=== PATIENT | female | born 1970 | race African-American/Black ===

== ENCOUNTER → 2016-11-04 | Outpatient (CLI) | payer OTHER ==
[~2016-11-04] MED LIST: AMOXICILLIN500 M2 PO; ANAPROX DS550 MG PO; ATARAX25 MG PO; BACTRIM DS 8001 TA1 PO; BACTROBAN CREAM15 GM T; CIPRO500 MG PO; CIPROFLOXACIN500 MG PO; FLEXERIL10 MG PO; FLEXERIL5 MG PO; KEFLEX500 MG PO; KENALOG 0.5% CR15 GM PO; KENALOG0.1% TP; MEDROL DOSEPAK4 MG PO; MIRALAX POWDER17 G1 PO; MOTRIN800 MG PO; Motrin,Rufen800 MG PO; NAPROSYN250 MG PO; NAPROSYN375 MG PO; NAPROSYN500 MG PO; NICODERM C7 MG/24 HR TD; NKHM; PHENERGAN W/DM120 ML PO; PREDNISONE10 MG PO; PREDNISONE20 M1 PO; PROAIR HFA0.09 MG/AC IH; ROBITUSSIN AC 110 ML PO; TRAMADOL HCL50 MG PO; TRIMOX500 MG PO; VENTOLIN H0.09 MG/AC INH; VIBRAMYCIN100 MG PO; VICODIN 5/500 505 MG PO; ZOFRAN ODT4 MG SL
[2016-11-04 14:25] LABS: HEMATOCRIT 37.7 % (37.0-47.0); HEMOGLOBIN 12.3 g/dl (12.0-16.0); MEAN CELL VOLUME 86.9 fl (81.0-99.0); MEAN CORPUSCULAR HGB 28.3 pg (27.0-31.0); MEAN CORPUSCULAR HGB CONC 32.6 g/dl (33.0-37.0); MEAN PLATELET VOLUME 10.5 fl (9.6-12.3); PLATELET COUNT AUTOMATED 251 10*3/uL (130-400); RED BLOOD COUNT 4.34 10*6/uL (4.10-5.10); RED CELL DISTRI WIDTH 15.6 % (0-14.5); WHITE BLOOD COUNT 5.2 10*3/uL (4.8-10.8)
[2016-11-04 14:50] LABS: EOSINOPHIL # 0.5 10*3/uL (0-0.4); EOSINOPHILS 9 % (1-4); MONOCYTE # 0.2 10*3/uL (0.1-1.0); NEUTROPHIL # 1.6 10*3/uL (2.3-7.9); NEUTROPHILS 30 % (47-73); TOTAL CELLS COUNTED 100 #CELLS
[2016-11-04 14:51] LABS: PLATELET SUFFICIENCY NORMAL (NORMAL)
[2016-11-04 14:56] LABS: ALBUMIN 3.8 gm/dl (3.1-4.5); BILIRUBIN, TOTAL 0.3 mg/dl (0.2-1.0); BUN 12 mg/dl (7-24); CARBON DIOXIDE 25 mmol/L (21-32); CHLORIDE 109 mmol/L (98-107); CHOLESTEROL 139 mg/dL (<200); EST GLOM FILT AFRICAN AMERICAN > 60 ml/min; GLUCOSE 83 mg/dL (65-99); POTASSIUM 4.1 mmol/L (3.5-5.1); SGOT/AST 18 IU/L (3-35); SGPT/ALT 21 U/L (12-78); SODIUM 141 mmol/L (136-145); TOTAL PROTEIN 7.4 gm/dL (6.4-8.2); TRIGLYCERIDES 42 mg/dl (<150); VLDL CHOLESTEROL 8 mg/dL (6-40)
[2016-11-04 14:57] LABS: ALKALINE PHOSPHATASE 64 U/L (45-117); HDL CHOLESTEROL 80 mg/dl (40-60); LDL CHOLESTEROL 51 mg/dL (9-159)
== END ==
LOC: LAB 14:07
PROVIDERS: Nurse Practitioner Family
DX: J44.9 Chronic obstructive pulmonary disease, unspecified (principal); K59.00 Constipation, unspecified

== ENCOUNTER 2016-11-18 20:02 | Emergency (ER) | payer OTHER ==
[~2016-11-18] VITALS: Ht 157.4 cm; Wt 49.9 kg
[2016-11-18 20:16] VITALS: BP 133/71
[2016-11-18] MEDS ORDERED: MEDROL DOSEPAK4 MG PO (20:52)
== END 2016-11-18 21:10 | disposition home or self-care (01) ==
LOC: ED 20:02
DX: M77.9 Enthesopathy, unspecified (principal); F17.200 Nicotine dependence, unspecified, uncomplicated

== ENCOUNTER 2016-12-21 20:47 | Inpatient (IN) | payer OTHER ==
[~2016-12-21] VITALS: Ht 154.9 cm; Wt 49.0 kg
--- NOTE | ~2016-12-21 | CON ---
[place], [place] REPORT OF CONSULTATION NAME: CAROLYN MONIQUE [facility] #: [id number] UNIT #: [id number] ROOM: 424 DOCTOR: SHEMAR SUÁREZ MDJOVANI BIRTHDATE: [birth year] DOS: 12/23/2016 PULMONARY CONSULTATION EVALUATION REASON FOR CONSULTATION: Consultation was done for patient's assessment of ongoing acute respiratory symptoms with exacerbation of bronchial asthma. REQUESTING PHYSICIAN: The consultation requested by Dr. Thalia Rae. HISTORY OF PRESENT ILLNESS: A 46-year-old white female who has been admitted to the hospital. The patient has been noted with getting increased shortness of breath for the past few days. Shortness of breath has been noted progressive worsening. She has been using an excessive amount of albuterol sulfate nebulizer. She has used the medication 8-9 times in 24 hours prior to coming to the Emergency Room. She was still noted difficulty breathing. The patient stated that she was felling lightheadedness after that and also about to pass out in the morning. The patient denies any symptoms of chest pain. The patient denies any symptoms of hemoptysis. The cough has been noted with intermittent sputum expectoration. She was also noted symptoms of wheezing and tightness in the chest. REVIEW OF SYSTEMS: CONSTITUTIONAL: Does complain of symptoms of fatigue and tiredness. Denies symptoms of fever or chills. EYES: Denies burning, redness, or tenderness. EARS, NOSE, THROAT SYMPTOMS: No sore throat, hoarseness, otalgia, postnasal drainage. CARDIOVASCULAR: Denies anginal pain, edema of the lower extremities, palpitations. GASTROINTESTINAL: Dysphagia, nausea, vomiting, diarrhea, abdominal pain, hematemesis, melena. GENITOURINARY: Denies dysuria, suprapubic pain, hematuria. SKIN: No lesions or rashes. MUSCULOSKELETAL: Denies acute joint pain, redness, or tenderness. CENTRAL NERVOUS SYSTEM: Symptoms of dizziness, near syncope of the patient seemed to be resolved at this time, which occurred at home previously as the patient uses Albuterol sulfate. Remaining systems were reviewed with the patient, they were noted all negative. PAST MEDICAL HISTORY: Reported for this patient as: 1. Bronchial asthma. 2. History of nicotine dependence. SOCIAL HISTORY: The patient stated she is not , has 5 children. Smoking was noted for the patient between half to a pack of cigarettes per day since teenager. Continue to smoke cigarettes actively. Denies any history of alcohol use or any illicit drugs use. PAST SURGICAL HISTORY: Noted as past . [place], [place] REPORT OF CONSULTATION NAME: CAROLYN MONIQUE UNIT #: [id number] ROOM: 424 DOCTOR: SHEMAR SUÁREZ MD,JOVANI BIRTHDATE: [birth year] FAMILY HISTORY: Father at the age of 7575 years old, complication of metastatic prostate cancer. The mother at age of 5656 years old, complications related to bronchial asthma. HOME MEDICATIONS: Noted ProAir, Ventolin HFA inhaler and the albuterol sulfate nebulizer. DRUG ALLERGIES: No known drug allergies. PHYSICAL EXAMINATION: GENERAL: This is a 46-year-old -Monegasque female, currently lying on the bed without any distress. Height of 5 feet 1 inch, weight of 108 pounds, BMI 20.4. VITAL SIGNS: Shows normal temperature, respiratory rate of 30 on admission, currently noted 18, heart rate 78-86, blood pressure of 107/82-106/65. Intake for the patient noted as 1040, output was not recorded. HEENT: Examination shows head is atraumatic. Eyes nonicterus. NECK: Supple. Head is atraumatic. Oral mucosa is moist. CARDIOVASCULAR: S1, S2 is audible. LUNGS: The patient is noted with moderate reduced breath sounds with diffuse expiratory wheezing. There are no crackles. ABDOMEN: Soft, nontender. Bowel sounds present. EXTREMITIES: Do not show any edema, clubbing, cyanosis. NEUROLOGIC: Cranial nerves 2 through 12 intact. No focal deficits. MUSCULOSKELETAL: No deformities. SKIN: Showed no lesions or rashes. LABORATORY DATA: CBC that was done just on 12/21/2016 was noted as normal CBC. Lactic acid normal on 12/21/2016. PT, PTT, 12/21/2016 was normal. The CMP on 12/21/2016 normal CMP and the troponin. The second set of troponin of the patient on 12/22/2016 normal. CBC on 12/22/2016, WBC count 4.7 with a normal CBC. BMP repeated on 12/22/2016 shows essentially normal BMP. CBC of this morning: WBC count 11,000. Remaining CBC normal. BMP: Glucose of 139, remaining BMP was normal. The chest x-ray of the patient that was done 1-view was reviewed for this patient. The 1-view chest x-ray of the patient was noted with finding of hyperinflation the patient without any acute pulmonary infiltration or other acute abnormalities visible at this time. IMPRESSION: 1. The patient who has been currently admitted to the hospital. The patient has been noted with ongoing acute exacerbation of bronchial asthma, unknown severity, most likely bronchial asthma could be considered at least moderate intensity for this patient as well based on her history. 2. History of chronic nicotine dependence. 3. Acute bacterial bronchitis, community-acquired infection streptococcal pneumonia would be considered. PLAN OF TREATMENT: The patient has been receiving the current bronchodilator, which will be continued every 4 hours. Solu-Medrol will be continued 60 mg q.8 hours with further reduction of the dose done based on the progression of the [place], [place] REPORT OF CONSULTATION NAME: CAROLYN MONIQUE UNIT #: [id number] ROOM: 424 DOCTOR: JOVANI PURCELL MD BIRTHDATE: [birth year] illness. The dose could be decreased for the patient from tomorrow. Today, it will be continued on same doses. The patient is still noted significant wheezing. Abstinence from the tobacco was discussed with the patient. Nicotine replacement patches could be used to help overcome any nicotine withdrawal if agreed upon by the patient. She was also requiring long-term management of bronchial asthma with addition of medications administration, which will be started for this patient as well. Continue use of the Mucinex as well. Obtain the sputum for Gram stain and culture if the patient is able to expectorate any sputum. Obtain PA lateral view of the patient to definitively exclude any pathology for assessment of the patient with the lateral view. Thanks for allowing me to participate in the care of this patient. JOVANI STATON MD CM:CONSTR:REPORT OF CONSULTATION 1200 12/24/16 0205 interface
--- NOTE | ~2016-12-21 | PR ---
[place], [place] PROGRESS NOTE [id number] #: [id number] ROOM: 424 DOCTOR: SHEMAR SUÁREZ MD,JOVANI BIRTHDATE: [birth year] DOS: 12/24/2016 PULMONARY PROGRESS NOTE SUBJECTIVE: She has been noted comfortable at this time, resting on the bed . Denies symptoms of acute chest pain. All the symptoms of the patient, which has been noted previously seemed to be gradually improving. OBJECTIVE: VITAL SIGNS: Shows normal temperature, respiratory rate 16, heart rate 86, blood pressure 113/72. Pulse oxygen saturation on room air 99% saturation. HEENT: No acute change. NECK: Supple. CARDIOVASCULAR SYSTEM: S1, S2 audible. LUNGS: The patient was noted with occasional wheezing. No crackles. ABDOMEN: Soft, nontender. LABORATORY DATA: Chest x-ray, PA and lateral view this morning does not show any acute pulmonary infiltration. Changes of COPD were noted. The BMP: Sodium 139, otherwise normal. CBC: WBC count was 11,000, hemoglobin and hematocrit normal, platelet count was normal. IMPRESSION: 1. The patient was currently responding to current treatment for the medical management of acute exacerbation of bronchial asthma and acute bronchitis. 2. Nicotine dependence. PLAN OF TREATMENT: The patient could be considered for possible home discharge today for the patient on oral medications. Tobacco abstinence for the patient was recommended. JOVANI STATON MD CM:PNTRANS [id number] JOVANI SUÁREZ MD 12/24/16 0713 interface
[2016-12-21 20:57] VITALS: BP 107/69
[2016-12-21 21:11] LABS: BASO # 0.1 10*3/uL (0.0-0.1); BASO % 0.6 % (0.0-1.0); EOS # 1.1 10*3/uL (0.0-0.4); EOS % 12.1 % (1.0-4.0); HEMATOCRIT 40.8 % (37.0-47.0); HEMOGLOBIN 13.5 g/dl (12.0-16.0); LYMPH # 3.3 10*3/uL (1.3-4.4); LYMPH % 36.5 % (27.0-41.0); MEAN CELL VOLUME 87.2 fl (81.0-99.0); MEAN CORPUSCULAR HGB 28.8 pg (27.0-31.0); MEAN CORPUSCULAR HGB CONC 33.1 g/dl (33.0-37.0); MONO # 0.5 10*3/uL (0.1-1.0); NEUT # 4.1 10*3/uL (2.3-7.9); NEUT % 44.6 % (47.0-73.0); PLATELET COUNT AUTOMATED 277 10*3/uL (130-400); RED BLOOD COUNT 4.68 10*6/uL (4.10-5.10); RED CELL DISTRI WIDTH 14.3 % (0-14.5); WHITE BLOOD COUNT 9.1 10*3/uL (4.8-10.8)
[2016-12-21 21:21] LABS: INTERNATIONAL NORM RATIO 0.9 (2.0-3.5); PROTHROMBIN TIME 9.8 SECONDS (9.0-12.4)
[2016-12-21 21:29] LABS: ALBUMIN 3.9 gm/dl (3.1-4.5); ALKALINE PHOSPHATASE 73 U/L (45-117); BILIRUBIN, TOTAL 0.2 mg/dl (0.2-1.0); BUN 12 mg/dl (7-24); CARBON DIOXIDE 23 mmol/L (21-32); CHLORIDE 106 mmol/L (98-107); EST GLOM FILT AFRICAN AMERICAN > 60 ml/min; GLUCOSE 96 mg/dL (65-99); POTASSIUM 3.8 mmol/L (3.5-5.1); SGOT/AST 20 IU/L (3-35); SGPT/ALT 19 U/L (12-78); SODIUM 141 mmol/L (136-145); TOTAL PROTEIN 7.7 gm/dL (6.4-8.2)
[2016-12-21 21:31] LABS: TROPONIN I < 0.015 ng/ml (<0.045)
[2016-12-21 21:48] VITALS: BP 98/70
[2016-12-21 22:50] VITALS: BP 107/82
[2016-12-22] VITALS: BP 117/71
[2016-12-22 06:21] LABS: BASO % 0.2 % (0.0-1.0); EOS % 0.2 % (1.0-4.0); HEMATOCRIT 38.3 % (37.0-47.0); HEMOGLOBIN 12.8 g/dl (12.0-16.0); LYMPH # 0.7 10*3/uL (1.3-4.4); LYMPH % 15.7 % (27.0-41.0); MEAN CELL VOLUME 86.8 fl (81.0-99.0); MEAN CORPUSCULAR HGB CONC 33.4 g/dl (33.0-37.0); MEAN PLATELET VOLUME 10.7 fl (9.6-12.3); MONO # 0.1 10*3/uL (0.1-1.0); MONO % 1.5 % (3.0-9.0); NEUT # 3.8 10*3/uL (2.3-7.9); NEUT % 81.5 % (47.0-73.0); PLATELET COUNT AUTOMATED 263 10*3/uL (130-400); RED BLOOD COUNT 4.41 10*6/uL (4.10-5.10); RED CELL DISTRI WIDTH 14.3 % (0-14.5); WHITE BLOOD COUNT 4.7 10*3/uL (4.8-10.8)
[2016-12-22 06:54] LABS: BUN 12 mg/dl (7-24); CARBON DIOXIDE 20 mmol/L (21-32); CHLORIDE 108 mmol/L (98-107); CHOLESTEROL 127 mg/dL (<200); EST GLOM FILT AFRICAN AMERICAN > 60 ml/min; FREE T4 0.98 ng/dl (0.76-1.46); GLUCOSE 183 mg/dL (65-99); HDL CHOLESTEROL 80 mg/dl (40-60); LDL CHOLESTEROL 40 mg/dL (9-159); POTASSIUM 4.2 mmol/L (3.5-5.1); SODIUM 138 mmol/L (136-145); TRIGLYCERIDES 35 mg/dl (<150); VLDL CHOLESTEROL 7 mg/dL (6-40)
[2016-12-22 07:01] LABS: THYROID STIM HORMONE (HS) 0.413 uIU/ml (0.358-4.75)
[2016-12-22 07:24] LABS: HEMOGLOBIN A1c 5.4 % (4.8-5.6)
[2016-12-22 07:59] LABS: VITAMIN D, 25-HYDROXY 7.6 ng/mL (30-100)
[2016-12-22 08:00] VITALS: BP 111/70
[2016-12-22 08:00] LABS: FOLIC ACID 11.43 ng/mL (>5.38)
[2016-12-22 12:00] VITALS: BP 115/58
[2016-12-22 16:00] VITALS: BP 112/61
[2016-12-22 20:00] VITALS: BP 106/66
[2016-12-23] VITALS: BP 106/65
[2016-12-23 06:10] LABS: BASO % 0.1 % (0.0-1.0); HEMOGLOBIN 12.3 g/dl (12.0-16.0); IG # 0.1 10*3/uL (0.0-0.1); LYMPH % 9.2 % (27.0-41.0); MEAN CELL VOLUME 86.7 fl (81.0-99.0); MEAN CORPUSCULAR HGB 28.8 pg (27.0-31.0); MEAN CORPUSCULAR HGB CONC 33.2 g/dl (33.0-37.0); MEAN PLATELET VOLUME 11.2 fl (9.6-12.3); MONO # 0.3 10*3/uL (0.1-1.0); NEUT # 9.5 10*3/uL (2.3-7.9); NEUT % 86.9 % (47.0-73.0); PLATELET COUNT AUTOMATED 276 10*3/uL (130-400); RED BLOOD COUNT 4.27 10*6/uL (4.10-5.10); RED CELL DISTRI WIDTH 14.6 % (0-14.5)
[2016-12-23 06:34] LABS: BUN 11 mg/dl (7-24); CARBON DIOXIDE 24 mmol/L (21-32); CHLORIDE 106 mmol/L (98-107); EST GLOM FILT AFRICAN AMERICAN > 60 ml/min; GLUCOSE 139 mg/dL (65-99); POTASSIUM 4.5 mmol/L (3.5-5.1); SODIUM 140 mmol/L (136-145)
[2016-12-23 08:00] VITALS: BP 106/48
[2016-12-23 12:00] VITALS: BP 102/58
[2016-12-23 16:00] VITALS: BP 111/57
[2016-12-23 20:00] VITALS: BP 120/61
[2016-12-24] VITALS: BP 110/64
[2016-12-24 08:00] VITALS: BP 113/72
[2016-12-24] MEDS ORDERED: LEVAQUIN500 M2 PO (11:25)
[2016-12-24] MEDS ORDERED: D-1000 185 MG-11 TAB PO (11:25)
[2016-12-24] MEDS ORDERED: KROGER NIC21 MG/24 H T (11:25)
[2016-12-24] MEDS ORDERED: PREDNISONE50 MG PO (11:25)
== END 2016-12-24 13:53 | disposition home or self-care (01) | DRG 871 ==
LOC: ED 20:47 → 4E 21:40 → EDHOLD 21:40 → 4E 22:11
PROVIDERS: Internal Medicine; Student in an Organized Health Care Education/Training Program
DX: A41.9 Sepsis, unspecified organism (principal); J18.9 Pneumonia, unspecified organism; E87.8 Other disorders of electrolyte and fluid balance, not elsewhere classified; J44.0 Chronic obstructive pulmonary disease with (acute) lower respiratory infection; J45.901 Unspecified asthma with (acute) exacerbation; J44.1 Chronic obstructive pulmonary disease with (acute) exacerbation; F17.210 Nicotine dependence, cigarettes, uncomplicated; J20.9 Acute bronchitis, unspecified; R73.9 Hyperglycemia, unspecified; E55.9 Vitamin D deficiency, unspecified; R91.1 Solitary pulmonary nodule; Z71.6 Tobacco abuse counseling; Z79.51 Long term (current) use of inhaled steroids; Z82.5 Family history of asthma and other chronic lower respiratory diseases; Z80.42 Family history of malignant neoplasm of prostate; Z80.8 Family history of malignant neoplasm of other organs or systems

== ENCOUNTER → 2017-05-17 | Outpatient (CLI) | payer OTHER ==
[~2017-05-17] MED LIST changes: +D-1000 185 MG-11 TAB PO; +KROGER NIC21 MG/24 H T; +LEVAQUIN500 M2 PO; +PREDNISONE50 MG PO
== END | disposition home or self-care (01) ==
LOC: RAD 12:30
DX: J43.9 Emphysema, unspecified (principal); J45.909 Unspecified asthma, uncomplicated

== ENCOUNTER 2017-12-08 12:07 | Emergency (ER) | payer OTHER ==
[~2017-12-08] VITALS: Ht 152.4 cm; Wt 59.0 kg
[2017-12-08 12:22] VITALS: BP 125/64
[2017-12-08 12:45] LABS: HEMATOCRIT 41.9 % (37.0-47.0); HEMOGLOBIN 13.9 g/dl (12.0-16.0); MEAN CELL VOLUME 88.4 fl (81.0-99.0); MEAN CORPUSCULAR HGB 29.3 pg (27.0-31.0); MEAN CORPUSCULAR HGB CONC 33.2 g/dl (33.0-37.0); MEAN PLATELET VOLUME 10.6 fl (9.6-12.3); PLATELET COUNT AUTOMATED 255 10*3/uL (130-400); RED BLOOD COUNT 4.74 10*6/uL (4.10-5.10); RED CELL DISTRI WIDTH 14.2 % (0-14.5); WHITE BLOOD COUNT 8.3 10*3/uL (4.8-10.8)
[2017-12-08 13:03] LABS: ALKALINE PHOSPHATASE 62 U/L (45-117); BUN 12 mg/dl (7-24); CHLORIDE 107 mmol/L (98-107); CREATININE 0.78 mg/dL (0.55-1.02); POTASSIUM 3.8 mmol/L (3.5-5.1); SGOT/AST 18 IU/L (3-35); SGPT/ALT 22 U/L (12-78); SODIUM 137 mmol/L (136-145); TOTAL PROTEIN 7.7 gm/dL (6.4-8.2)
[2017-12-08 13:05] LABS: ATYPICAL LYMPHS 1 % (0-0); BASOPHILS 1 % (0-1); PLATELET SUFFICIENCY NORMAL (NORMAL); TOTAL CELLS COUNTED 100 #CELLS
[2017-12-08] MEDS ORDERED: DUONEB 3 MG/3 ML3 M1 INH (13:25)
[2017-12-08] MEDS ORDERED: VIBRAMYCIN100 MG PO (13:25)
[2017-12-08] MEDS ORDERED: PROAIR HFA8.5 GM INH (13:25)
[2017-12-08] MEDS ORDERED: PREDNISONE50 MG PO (13:25)
[2017-12-08] MEDS ORDERED: AEROECLIPSE II1 EACH MC (13:25)
== END 2017-12-08 13:49 | disposition home or self-care (01) ==
LOC: ED 12:07
PROVIDERS: Emergency Medicine
DX: J44.1 Chronic obstructive pulmonary disease with (acute) exacerbation (principal); F17.200 Nicotine dependence, unspecified, uncomplicated; E78.00 Pure hypercholesterolemia, unspecified; Z98.890 Other specified postprocedural states; Z79.899 Other long term (current) drug therapy

== ENCOUNTER 2017-12-22 11:13 | Inpatient (IN) | payer OTHER ==
[~2017-12-22] VITALS: Ht 156.2 cm; Wt 51.7 kg
[~2017-12-22 11:13] MED LIST changes: +AEROECLIPSE II1 EACH MC; +DUONEB 3 MG/3 ML3 M1 INH; +PROAIR HFA8.5 GM INH
[2017-12-22 11:14] VITALS: BP 116/71
[2017-12-22 11:55] LABS: BASO % 0.5 % (0.0-1.0); EOS # 1.4 10*3/uL (0.0-0.4); EOS % 18.5 % (1.0-4.0); HEMATOCRIT 42.3 % (37.0-47.0); HEMOGLOBIN 13.9 g/dl (12.0-16.0); LYMPH # 3.2 10*3/uL (1.3-4.4); LYMPH % 43.8 % (27.0-41.0); MEAN CELL VOLUME 89.1 fl (81.0-99.0); MEAN CORPUSCULAR HGB 29.3 pg (27.0-31.0); MEAN CORPUSCULAR HGB CONC 32.9 g/dl (33.0-37.0); MEAN PLATELET VOLUME 10.3 fl (9.6-12.3); MONO # 0.4 10*3/uL (0.1-1.0); NEUT # 2.3 10*3/uL (2.3-7.9); NEUT % 30.9 % (47.0-73.0); PLATELET COUNT AUTOMATED 325 10*3/uL (130-400); RED BLOOD COUNT 4.75 10*6/uL (4.10-5.10); RED CELL DISTRI WIDTH 14.2 % (0-14.5); WHITE BLOOD COUNT 7.4 10*3/uL (4.8-10.8)
[2017-12-22 12:05] LABS: ACT PARTIAL THROMBO TIME 27.4 SECONDS (20.8-31.5)
[2017-12-22 12:14] LABS: ALBUMIN 3.8 gm/dl (3.1-4.5); ALKALINE PHOSPHATASE 58 U/L (45-117); BUN 11 mg/dl (7-24); CHLORIDE 107 mmol/L (98-107); CREATININE 0.85 mg/dL (0.55-1.02); LIPASE 159 U/L (73-393); POTASSIUM 3.7 mmol/L (3.5-5.1); SGOT/AST 16 IU/L (3-35); SGPT/ALT 23 U/L (12-78); SODIUM 139 mmol/L (136-145); TOTAL PROTEIN 7.4 gm/dL (6.4-8.2)
[2017-12-22 12:17] LABS: BETA-HCG, QUANT < 1.0 mIU/mL (1-3); TROPONIN I < 0.015 ng/ml (<0.045)
[2017-12-22 12:50] VITALS: BP 108/59
[2017-12-22 13:17] VITALS: BP 113/76
[2017-12-22 16:00] VITALS: BP 117/63
[2017-12-22 20:00] VITALS: BP 110/64
[2017-12-23] VITALS: BP 102/75
[2017-12-23 06:39] LABS: BASO % 0.1 % (0.0-1.0); HEMATOCRIT 38.1 % (37.0-47.0); HEMOGLOBIN 12.3 g/dl (12.0-16.0); LYMPH # 1.1 10*3/uL (1.3-4.4); LYMPH % 13.3 % (27.0-41.0); MEAN CORPUSCULAR HGB 28.7 pg (27.0-31.0); MEAN CORPUSCULAR HGB CONC 32.3 g/dl (33.0-37.0); MEAN PLATELET VOLUME 10.2 fl (9.6-12.3); MONO # 0.4 10*3/uL (0.1-1.0); MONO % 4.6 % (3.0-9.0); NEUT # 6.6 10*3/uL (2.3-7.9); NEUT % 80.9 % (47.0-73.0); PLATELET COUNT AUTOMATED 282 10*3/uL (130-400); RED BLOOD COUNT 4.28 10*6/uL (4.10-5.10); RED CELL DISTRI WIDTH 14.2 % (0-14.5); WHITE BLOOD COUNT 8.2 10*3/uL (4.8-10.8)
[2017-12-23 07:00] LABS: ALBUMIN 3.5 gm/dl (3.1-4.5); ALKALINE PHOSPHATASE 45 U/L (45-117); BUN 7 mg/dl (7-24); CHLORIDE 108 mmol/L (98-107); CHOLESTEROL 135 mg/dL (<200); CREATININE 0.79 mg/dL (0.55-1.02); HDL CHOLESTEROL 79 mg/dl (40-60); LDL CHOLESTEROL 50 mg/dL (9-159); POTASSIUM 4.1 mmol/L (3.5-5.1); SGOT/AST 10 IU/L (3-35); SGPT/ALT 18 U/L (12-78); SODIUM 139 mmol/L (136-145); TOTAL PROTEIN 6.6 gm/dL (6.4-8.2); TRIGLYCERIDES 29 mg/dl (<150); VLDL CHOLESTEROL 6 mg/dL (6-40)
[2017-12-23 07:05] LABS: THYROID STIM HORMONE (HS) 0.504 uIU/ml (0.358-4.75)
[2017-12-23 07:17] LABS: ACT PARTIAL THROMBO TIME 25.3 SECONDS (20.8-31.5)
[2017-12-23 08:00] VITALS: BP 105/64
[2017-12-23 08:33] LABS: VITAMIN D, 25-HYDROXY 11.8 ng/mL (30-100)
[2017-12-23 12:00] VITALS: BP 114/72
[2017-12-23 16:00] VITALS: BP 112/55
[2017-12-23 20:00] VITALS: BP 114/53
[2017-12-24] VITALS: BP 101/53
[2017-12-24 08:00] VITALS: BP 105/54
[2017-12-24 12:00] VITALS: BP 112/56
[2017-12-24] MEDS ORDERED: VITAMIN D-32000 UNIT PO (12:14)
[2017-12-24] MEDS ORDERED: DOXYCYCLINE100 M3 PO (12:14)
[2017-12-24] MEDS ORDERED: PREDNISONE10 MG PO (12:14)
[2017-12-24] MEDS ORDERED: NICODERM CQ1 EAC2 T (12:14)
[2017-12-24] MEDS ORDERED: PROAIR HFA8.5 GM INH (12:14)
== END 2017-12-24 12:51 | disposition home or self-care (01) | DRG 190 ==
LOC: ED 11:13 → 5E 13:30 → EDHOLD 13:30 → 5E 13:46
PROVIDERS: Emergency Medicine; Family Medicine
DX: J44.1 Chronic obstructive pulmonary disease with (acute) exacerbation (principal); J18.9 Pneumonia, unspecified organism; E83.41 Hypermagnesemia; F17.210 Nicotine dependence, cigarettes, uncomplicated; J44.0 Chronic obstructive pulmonary disease with (acute) lower respiratory infection; R91.1 Solitary pulmonary nodule; Z79.899 Other long term (current) drug therapy; Z98.891 History of uterine scar from previous surgery; Z78.9 Other specified health status; Z80.42 Family history of malignant neoplasm of prostate; Z71.6 Tobacco abuse counseling; Z82.5 Family history of asthma and other chronic lower respiratory diseases

== ENCOUNTER → 2017-12-28 | Outpatient (CLI) | payer OTHER ==
[~2017-12-28] MED LIST changes: +AUGMENTIN 875875 MG PO; +CEPHALEXIN500 M1 PO; +DOXYCYCLINE100 M3 PO; +NICODERM CQ1 EAC2 T; +VITAMIN D-32000 UNIT PO
[2017-12-28 14:53] LABS: BASO % 0.4 % (0.0-1.0); EOS # 1.3 10*3/uL (0.0-0.4); EOS % 18.3 % (1.0-4.0); HEMATOCRIT 41.1 % (37.0-47.0); HEMOGLOBIN 13.5 g/dl (12.0-16.0); LYMPH # 3.4 10*3/uL (1.3-4.4); LYMPH % 49.8 % (27.0-41.0); MEAN CELL VOLUME 89.3 fl (81.0-99.0); MEAN CORPUSCULAR HGB 29.3 pg (27.0-31.0); MEAN CORPUSCULAR HGB CONC 32.8 g/dl (33.0-37.0); MONO # 0.5 10*3/uL (0.1-1.0); MONO % 7.9 % (3.0-9.0); NEUT # 1.6 10*3/uL (2.3-7.9); PLATELET COUNT AUTOMATED 273 10*3/uL (130-400); RED CELL DISTRI WIDTH 14.1 % (0-14.5); WHITE BLOOD COUNT 6.8 10*3/uL (4.8-10.8)
[2017-12-28 15:08] LABS: ALBUMIN 3.9 gm/dl (3.1-4.5); ALKALINE PHOSPHATASE 50 U/L (45-117); BUN 11 mg/dl (7-24); CHLORIDE 104 mmol/L (98-107); CHOLESTEROL 151 mg/dL (<200); CREATININE 0.87 mg/dL (0.55-1.02); HDL CHOLESTEROL 76 mg/dl (40-60); LDL CHOLESTEROL 64 mg/dL (9-159); POTASSIUM 4.3 mmol/L (3.5-5.1); SGOT/AST 21 IU/L (3-35); SGPT/ALT 24 U/L (12-78); SODIUM 139 mmol/L (136-145); TOTAL PROTEIN 7.1 gm/dL (6.4-8.2); TRIGLYCERIDES 57 mg/dl (<150); VLDL CHOLESTEROL 11 mg/dL (6-40)
== END | disposition home or self-care (01) ==
LOC: LAB 13:47
PROVIDERS: Nurse Practitioner Family
DX: J44.9 Chronic obstructive pulmonary disease, unspecified (principal); J30.9 Allergic rhinitis, unspecified; E55.9 Vitamin D deficiency, unspecified; E05.90 Thyrotoxicosis, unspecified without thyrotoxic crisis or storm; Z72.0 Tobacco use

== ENCOUNTER 2018-01-19 16:08 | Emergency (ER) | payer OTHER ==
[~2018-01-19] VITALS: Ht 154.9 cm; Wt 50.8 kg
[~2018-01-19 16:08] MED LIST changes: -AUGMENTIN 875875 MG PO; -CEPHALEXIN500 M1 PO
[2018-01-19 16:12] VITALS: BP 120/80
[2018-01-19] MEDS ORDERED: AUGMENTIN 875875 MG PO ×2 (16:30→17:19)
[2018-01-19] MEDS ORDERED: CEPHALEXIN500 M1 PO (17:16)
== END 2018-01-19 17:27 | disposition home or self-care (01) ==
LOC: ED 16:08
DX: S81.852A Open bite, left lower leg, initial encounter (principal); F17.200 Nicotine dependence, unspecified, uncomplicated; Z98.890 Other specified postprocedural states; Z79.899 Other long term (current) drug therapy; W54.0XXA Bitten by dog, initial encounter; Y93.89 Activity, other specified; Y92.89 Other specified places as the place of occurrence of the external cause; Y99.9 Unspecified external cause status

== ENCOUNTER 2018-04-04 13:59 | Emergency (ER) | payer OTHER ==
[~2018-04-04] VITALS: Ht 154.9 cm; Wt 49.9 kg
[~2018-04-04 13:59] MED LIST changes: +AUGMENTIN 875875 MG PO; +CEPHALEXIN500 M1 PO
[2018-04-04 14:02] VITALS: BP 121/58
[2018-04-04 14:27] LABS: BASO % 0.3 % (0.0-1.0); EOS # 0.6 10*3/uL (0.0-0.4); EOS % 8.5 % (1.0-4.0); HEMATOCRIT 40.3 % (37.0-47.0); HEMOGLOBIN 13.1 g/dl (12.0-16.0); LYMPH # 2.6 10*3/uL (1.3-4.4); LYMPH % 35.1 % (27.0-41.0); MEAN CELL VOLUME 89.2 fl (81.0-99.0); MEAN CORPUSCULAR HGB CONC 32.5 g/dl (33.0-37.0); MEAN PLATELET VOLUME 11.3 fl (9.6-12.3); MONO # 0.5 10*3/uL (0.1-1.0); MONO % 6.6 % (3.0-9.0); NEUT # 3.6 10*3/uL (2.3-7.9); NEUT % 49.2 % (47.0-73.0); PLATELET COUNT AUTOMATED 224 10*3/uL (130-400); RED BLOOD COUNT 4.52 10*6/uL (4.10-5.10); RED CELL DISTRI WIDTH 13.4 % (0-14.5); WHITE BLOOD COUNT 7.3 10*3/uL (4.8-10.8)
[2018-04-04 14:42] LABS: ALBUMIN 3.9 gm/dl (3.1-4.5); ALKALINE PHOSPHATASE 53 U/L (45-117); BUN 8 mg/dl (7-24); CHLORIDE 101 mmol/L (98-107); CREATININE 0.79 mg/dL (0.55-1.02); LIPASE 153 U/L (73-393); POTASSIUM 3.5 mmol/L (3.5-5.1); SGOT/AST 12 IU/L (3-35); SGPT/ALT 19 U/L (12-78); SODIUM 138 mmol/L (136-145); TOTAL PROTEIN 7.5 gm/dL (6.4-8.2)
[2018-04-04 15:02] LABS: BILIRUBIN 1+ (NEGATIVE); BLOOD 3+ (NEGATIVE); CLARITY CLEAR (CLEAR); COLOR YELLOW (YELLOW); GLUCOSE NEGATIVE (NEGATIVE); KETONE 2+ (NEGATIVE); LEUKO ESTERASE NEGATIVE (NEGATIVE); NITRITE NEGATIVE (NEGATIVE); SPECIFIC GRAVITY 1.015 (1.005-1.030)
[2018-04-04 15:22] LABS: BACTERIA TRACE; RBC 16-20 rbc/hpf (0-2); WBC 0-2 wbc/hpf (0-5)
[2018-04-04] MEDS ORDERED: CARAFATE1 G1 PO (15:31)
[2018-04-04] MEDS ORDERED: OMEPRAZOLE MAGN20 MG PO (15:31)
[2018-04-04] MEDS ORDERED: ZANTAC 150150 MG PO (15:31)
[2018-04-04] MEDS ORDERED: ZOFRAN4 MG PO (15:31)
== END 2018-04-04 17:59 | disposition home or self-care (01) ==
LOC: ED 13:59
PROVIDERS: Nurse Practitioner Family
DX: K29.00 Acute gastritis without bleeding (principal); R03.0 Elevated blood-pressure reading, without diagnosis of hypertension; F17.200 Nicotine dependence, unspecified, uncomplicated; Z98.890 Other specified postprocedural states; Z79.899 Other long term (current) drug therapy

== ENCOUNTER → 2018-05-26 | Outpatient (CLI) | payer OTHER ==
[~2018-05-26] MED LIST changes: +CARAFATE1 G1 PO; +OMEPRAZOLE MAGN20 MG PO; +ZANTAC 150150 MG PO; +ZOFRAN4 MG PO
== END | disposition home or self-care (01) ==
LOC: MAMMO 12:07
DX: N63.11 Unspecified lump in the right breast, upper outer quadrant (principal)

== ENCOUNTER → 2018-06-22 | Day surgery (SDC) | payer OTHER ==
[~2018-06-22] MED LIST changes: +PYRIDIUM200 M1 PO
== END | disposition home or self-care (01) ==
LOC: SDC 06-08 04:01
DX: C50.911 Malignant neoplasm of unspecified site of right female breast (principal); Z17.0 Estrogen receptor positive status [ER+]; J44.9 Chronic obstructive pulmonary disease, unspecified; Z98.890 Other specified postprocedural states; Z87.19 Personal history of other diseases of the digestive system; Z72.0 Tobacco use; Z79.899 Other long term (current) drug therapy

== ENCOUNTER 2018-07-12 12:27 | Emergency (ER) | payer OTHER ==
[~2018-07-12] VITALS: Wt 53.5 kg
[~2018-07-12 12:27] MED LIST changes: -PYRIDIUM200 M1 PO
[2018-07-12 12:29] VITALS: BP 104/58
[2018-07-12 12:52] LABS: BILIRUBIN NEGATIVE (NEGATIVE); BLOOD 3+ (NEGATIVE); CLARITY CLOUDY (CLEAR); COLOR YELLOW (YELLOW); GLUCOSE NEGATIVE (NEGATIVE); KETONE NEGATIVE (NEGATIVE); LEUKO ESTERASE NEGATIVE (NEGATIVE); NITRITE NEGATIVE (NEGATIVE); SPECIFIC GRAVITY >= 1.030 (1.005-1.030); UROBILINOGEN 0.2 E.U./dl (0.2-1.0)
[2018-07-12 13:03] LABS: MUCOUS 2+; RBC TNTC rbc/hpf (0-2)
[2018-07-12] MEDS ORDERED: PYRIDIUM200 M1 PO (16:03)
== END 2018-07-12 16:13 | disposition home or self-care (01) ==
LOC: ED 12:27
PROVIDERS: Emergency Medicine
DX: M54.5 Low back pain (principal); R31.9 Hematuria, unspecified; R30.0 Dysuria; J44.9 Chronic obstructive pulmonary disease, unspecified; F17.200 Nicotine dependence, unspecified, uncomplicated

== ENCOUNTER 2018-07-29 22:11 | Emergency (ER) | payer OTHER ==
[~2018-07-29] VITALS: Ht 154.9 cm; Wt 53.5 kg
[~2018-07-29 22:11] MED LIST changes: +PYRIDIUM200 M1 PO
[2018-07-29] MEDS ORDERED: VITAMIN D50000 UNIT PO (22:14)
[2018-07-29] MEDS ORDERED: BREO ELLIPTA 11 EACH INH (22:14)
[2018-07-29] MEDS ORDERED: PROAIR HFA8.5 GM INH (22:15)
[2018-07-29] MEDS ORDERED: IBUPROFEN400 MG PO (22:15)
[2018-07-29 22:30] VITALS: BP 107/61
[2018-07-29] MEDS ORDERED: ANTIBIOTIC28.4 GM T (23:11)
[2018-07-29] MEDS ORDERED: CIPRO500 MG PO (23:11)
== END 2018-07-29 22:43 | disposition home or self-care (01) ==
LOC: ED 22:11
DX: S91.331A Puncture wound without foreign body, right foot, initial encounter (principal); B35.1 Tinea unguium; E11.9 Type 2 diabetes mellitus without complications; F17.200 Nicotine dependence, unspecified, uncomplicated; Z79.899 Other long term (current) drug therapy; W22.8XXA Striking against or struck by other objects, initial encounter; Y93.89 Activity, other specified; Y92.89 Other specified places as the place of occurrence of the external cause; Y99.8 Other external cause status

== ENCOUNTER → 2018-08-25 | Outpatient (CLI) | payer OTHER ==
[~2018-08-25] MED LIST changes: +ANTIBIOTIC28.4 GM T; +ARTHRITIS PAI42.5 GM T; +BREO ELLIPTA 11 EACH INH; +CHANTIX1 M1 PO; +CYCLOBENZAPRINE10 MG PO; +IBUPROFEN400 MG PO; +TYLENOL325 M1 PO; +VITAMIN D50000 UNIT PO; +VOLTAREN100 GM T
--- NOTE | ~2018-08-25 | EKG ---
[place], [place] ELECTROCARDIOGRAM REPORT NAME: CAROLYN MONIQUE UNIT #: [id number] ROOM: DOCTOR: EPIPHANY DRAFT REPORT BIRTHDATE: [address] [facility] Test Date: 2018-08-25 Test Time: 14:22:24 Pat Name: CAROLYN MONIQUE Department: Room: Gender: F Park Attendant: Josephine Orourke : 1970 Requested By: LUIS E STARK Order Number: [id number] Reading MD: Silvano Fry MD Measurements Intervals [place] Rate: 56 P: 60 MA: 117 QRS: 71 QRSD: 72 T: 40 QT: 400 QTc: 387 Interpretive Statements Sinus rhythm Borderline short MA interval No previous ECG available for comparison Electronically Signed On 08-25-2018 18:07:50 PST by Silvano Fry MD CM:EKGRPT:ELECTROCARDIOGRAM REPORT 1422 [id number] LUIS E STARK EPIPHANY DRAFT REPORT LUIS E STARK
== END | disposition home or self-care (01) ==
LOC: CARD 14:14
DX: Z01.818 Encounter for other preprocedural examination (principal)

== ENCOUNTER 2018-10-16 15:55 | Emergency (ER) | payer OTHER ==
[~2018-10-16] VITALS: Ht 157.4 cm; Wt 53.5 kg
[~2018-10-16 15:55] MED LIST changes: -ARTHRITIS PAI42.5 GM T; -CHANTIX1 M1 PO; -TYLENOL325 M1 PO; -VOLTAREN100 GM T
[2018-10-16 15:58] VITALS: BP 119/77
[2018-10-16] MEDS ORDERED: TYLENOL325 M1 PO (16:22)
[2018-10-16] MEDS ORDERED: ARTHRITIS PAI42.5 GM T (16:26)
[2018-10-16] MEDS ORDERED: VOLTAREN100 GM T (16:26)
[2018-10-16] MEDS ORDERED: CHANTIX1 M1 PO (16:27)
== END 2018-10-16 16:25 | disposition home or self-care (01) ==
LOC: ED 15:55
DX: M54.10 Radiculopathy, site unspecified (principal); M79.605 Pain in left leg; J44.9 Chronic obstructive pulmonary disease, unspecified; F17.200 Nicotine dependence, unspecified, uncomplicated; Z79.899 Other long term (current) drug therapy

== ENCOUNTER → 2018-11-18 | Outpatient (CLI) | payer OTHER ==
[~2018-11-18] MED LIST changes: +ARTHRITIS PAI42.5 GM T; +CHANTIX1 M1 PO; +TYLENOL325 M1 PO; +VOLTAREN100 GM T
[2018-11-18 15:23] LABS: BASO # 0.1 10*3/uL (0.0-0.1); BASO % 1.1 % (0.0-1.0); EOS # 0.6 10*3/uL (0.0-0.4); EOS % 13.6 % (1.0-4.0); HEMATOCRIT 36.5 % (37.0-47.0); HEMOGLOBIN 11.9 g/dl (12.0-16.0); LYMPH # 2.5 10*3/uL (1.3-4.4); LYMPH % 52.2 % (27.0-41.0); MEAN CELL VOLUME 93.1 fl (81.0-99.0); MEAN CORPUSCULAR HGB 30.4 pg (27.0-31.0); MEAN CORPUSCULAR HGB CONC 32.6 g/dl (33.0-37.0); MEAN PLATELET VOLUME 10.3 fl (9.6-12.3); MONO # 0.4 10*3/uL (0.1-1.0); MONO % 7.5 % (3.0-9.0); NEUT # 1.2 10*3/uL (2.3-7.9); NEUT % 25.4 % (47.0-73.0); PLATELET COUNT AUTOMATED 341 10*3/uL (130-400); RED BLOOD COUNT 3.92 10*6/uL (4.10-5.10); RED CELL DISTRI WIDTH 16.5 % (0-14.5); WHITE BLOOD COUNT 4.7 10*3/uL (4.8-10.8)
[2018-11-18 15:59] LABS: ALBUMIN 3.8 gm/dl (3.1-4.5); ALKALINE PHOSPHATASE 56 U/L (45-117); BUN 14 mg/dl (7-24); CHLORIDE 111 mmol/L (98-107); CREATININE 0.82 mg/dL (0.55-1.02); POTASSIUM 4.2 mmol/L (3.5-5.1); SGOT/AST 17 IU/L (3-35); SGPT/ALT 20 U/L (12-78); SODIUM 144 mmol/L (136-145); TOTAL PROTEIN 7.3 gm/dL (6.4-8.2)
== END | disposition home or self-care (01) ==
LOC: LAB 14:52
PROVIDERS: Internal Medicine Medical Oncology
DX: C50.911 Malignant neoplasm of unspecified site of right female breast (principal)

== ENCOUNTER → 2019-07-05 | Outpatient (CLI) | payer OTHER ==
[2019-07-05 16:02] LABS: ALKALINE PHOSPHATASE 92 U/L (45-117); BUN 12 mg/dl (7-24); CHLORIDE 107 mmol/L (98-107); CREATININE 0.91 mg/dL (0.55-1.02); POTASSIUM 3.9 mmol/L (3.5-5.1); SGOT/AST 17 IU/L (3-35); SGPT/ALT 21 U/L (12-78); SODIUM 139 mmol/L (136-145); TOTAL PROTEIN 7.9 gm/dL (6.4-8.2)
== END | disposition home or self-care (01) ==
LOC: LAB 14:08
PROVIDERS: Orthopaedic Surgery
DX: Z79.1 Long term (current) use of non-steroidal anti-inflammatories (NSAID) (principal)

== ENCOUNTER 2020-02-01 21:09 | Inpatient (IN) | payer OTHER ==
[~2020-02-01] VITALS: Ht 154.9 cm; Wt 45.8 kg
[2020-02-01 21:11] VITALS: BP 135/93
[2020-02-01 21:32] LABS: BASO # 0.1 10*3/uL (0.0-0.1); BASO % 0.8 % (0.0-1.0); EOS # 1.2 10*3/uL (0.0-0.4); EOS % 19.2 % (1.0-4.0); LYMPH # 1.8 10*3/uL (1.3-4.4); LYMPH % 29.5 % (27.0-41.0); MEAN CELL VOLUME 92.6 fl (81.0-99.0); MEAN CORPUSCULAR HGB CONC 32.4 g/dl (33.0-37.0); MEAN PLATELET VOLUME 10.6 fl (9.6-12.3); MONO # 0.5 10*3/uL (0.1-1.0); MONO % 8.8 % (3.0-9.0); NEUT # 2.5 10*3/uL (2.3-7.9); NEUT % 41.5 % (47.0-73.0); PLATELET COUNT AUTOMATED 282 10*3/uL (130-400); RED BLOOD COUNT 4.86 10*6/uL (4.10-5.10); WHITE BLOOD COUNT 6.1 10*3/uL (4.8-10.8)
[2020-02-01 21:43] LABS: ACT PARTIAL THROMBO TIME 27.8 SECONDS (20.0-32.1); INTERNATIONAL NORM RATIO 0.9 (2.0-3.5)
[2020-02-01 21:48] LABS: ALBUMIN 3.9 gm/dl (3.1-4.5); ALKALINE PHOSPHATASE 102 U/L (45-117); BUN 12 mg/dl (7-24); CHLORIDE 109 mmol/L (98-107); POTASSIUM 3.8 mmol/L (3.5-5.1); SGOT/AST 33 IU/L (3-35); SGPT/ALT 46 U/L (12-78); SODIUM 138 mmol/L (136-145); TOTAL PROTEIN 7.6 gm/dL (6.4-8.2)
[2020-02-01 21:50] LABS: TROPONIN I < 0.015 ng/ml (<0.045)
--- NOTE | 2020-02-01 22:54 | NUR ---
PATIENT RESTING IN BED AT THIS TIME WITH LIGHTS TURNED DOWN AND EYES CLOSED. RESPIRATIONS EASY, NON-LABORED ON ROOM AIR. RN WILL CONTINUE TO MONITOR.
[2020-02-02 00:49] VITALS: BP 130/86
[2020-02-02 01:10] VITALS: BP 119/64
--- NOTE | 2020-02-02 01:10 | NUR ---
Time: 109 A 49 year old F admitted to 5E under services of ISRAEL WASHINGTON DO. Pt. arrived via wheel chair from ER. Chief complaint: HX COPD. SOB X 3 DAYS. LUKASZ HURLEY
--- NOTE | 2020-02-02 01:45 | NUR ---
PROVIDED WITH BOX LUNCH
[2020-02-02] MEDS ORDERED: VENLAFAXINE H37.5 M5 PO (02:21)
[2020-02-02] MEDS ORDERED: ANASTROZOLE1 M1 PO (02:21)
[2020-02-02] MEDS ORDERED: DICLOFENAC SOD75 MG PO (02:23)
[2020-02-02 03:21] LABS: BASO % 0.2 % (0.0-1.0); EOS % 0.8 % (1.0-4.0); HEMATOCRIT 43.6 % (37.0-47.0); LYMPH # 0.5 10*3/uL (1.3-4.4); LYMPH % 9.5 % (27.0-41.0); MEAN CORPUSCULAR HGB 30.4 pg (27.0-31.0); MEAN CORPUSCULAR HGB CONC 32.3 g/dl (33.0-37.0); MEAN PLATELET VOLUME 10.5 fl (9.6-12.3); MONO # 0.1 10*3/uL (0.1-1.0); MONO % 1.1 % (3.0-9.0); NEUT # 4.2 10*3/uL (2.3-7.9); NEUT % 88.2 % (47.0-73.0); PLATELET COUNT AUTOMATED 263 10*3/uL (130-400); RED BLOOD COUNT 4.64 10*6/uL (4.10-5.10); RED CELL DISTRI WIDTH 14.4 % (0-14.5); WHITE BLOOD COUNT 4.7 10*3/uL (4.8-10.8)
[2020-02-02 03:37] LABS: ALBUMIN 3.8 gm/dl (3.1-4.5); ALKALINE PHOSPHATASE 93 U/L (45-117); BUN 13 mg/dl (7-24); CHLORIDE 107 mmol/L (98-107); CHOLESTEROL 139 mg/dL (<200); CREATININE 0.91 mg/dL (0.55-1.02); HDL CHOLESTEROL 74 mg/dl (40-60); LDL CHOLESTEROL 55 mg/dL (9-159); POTASSIUM 3.7 mmol/L (3.5-5.1); SGOT/AST 33 IU/L (3-35); SGPT/ALT 43 U/L (12-78); SODIUM 137 mmol/L (136-145); TOTAL PROTEIN 7.3 gm/dL (6.4-8.2); TRIGLYCERIDES 50 mg/dl (<150); VLDL CHOLESTEROL 10 mg/dL (6-40)
[2020-02-02 03:38] LABS: FREE T4 0.99 ng/dl (0.76-1.46)
[2020-02-02 03:43] LABS: THYROID STIM HORMONE (HS) 0.351 uIU/ml (0.358-4.75)
--- NOTE | 2020-02-02 06:00 | NUR ---
SLEPT SINCE ARRIVING ON FLOOR. RESPIRATIONS EASY. CALL LIGHT WITHIN REACH. NO VOICED COMPLAINTS THIS SHIFT
[2020-02-02 08:00] VITALS: BP 114/71
--- NOTE | 2020-02-02 08:00 | NUR ---
IN TO ROOM. PATIENT LAYING IN BED. AWAKE, ALERT AND AND ORIENTED. NO STATED COMPLAINTS AT THIS TIME. NO SOB NOTED ON ROOM AIR. PT PLEASANT AND COOPERATIVE. PT REPOSITIONS SELF AND ENCOURAGED TO DO SO. BED IN LOWEST LOCKED POSITION AND CALL LIGHT WITHIN REACH. WILL CONTINUE TO MONITOR.
[2020-02-02 10:59] LABS: VITAMIN D, 25-HYDROXY 93.3 ng/mL (30-100)
[2020-02-02 12:00] VITALS: BP 110/68
--- NOTE | 2020-02-02 15:35 | NUR ---
IN TO ROOM. PT ASLEEP. BED IN LOWEST LOCKED POSITION AND CALL LIGHT WITHIN REACH. WILL CONTINUE TO MONITOR.
[2020-02-02 16:00] VITALS: BP 135/64
[2020-02-02 20:00] VITALS: BP 121/68
--- NOTE | 2020-02-02 20:00 | NUR ---
Patient resting quietly with no c/o discomfort. Respirations easy and regular. Vital signs stable. No overt distress. HEBER YANG
[2020-02-03] VITALS: BP 114/76
--- NOTE | 2020-02-03 | NUR ---
Patient resting quietly with no c/o discomfort. Respirations easy and regular. Vital signs stable. No overt distress. HEBER YANG
--- NOTE | 2020-02-03 03:50 | NUR ---
ENTIRE/24 HR chart check completed.
--- NOTE | 2020-02-03 04:00 | NUR ---
Patient resting quietly with no c/o discomfort. Respirations easy and regular. Vital signs stable. No overt distress. HEBER YANG
[2020-02-03 08:00] VITALS: BP 117/70
--- NOTE | 2020-02-03 09:51 | NUR ---
Replanting Machine Crewman in to talk to patient. Patient states lives at home with significant other. There are no steps in the home. Physician: parminder mesa [facility]acy: [facility] Home health services: none Patient's level of ADLs: INDEPENDENT Patient has working utilities: all working DME: none Follow-up physician's appointment after d/c: will be made by hospitalist nurse director upon discharge Does patient want to access PORTAL?: no Discharge plan discussed with patient, she lives at home with significant other , she is independent in adls and ambulation, she states she will return home when discharged and denies any home needs, she states she doesn't drive but her significant other does and he will pick her up from the hospital when discharged, she stated she also uses [employer] transportation for doctors appointments, case management will follow for any other needs. ADI DUNCAN
[2020-02-03 12:00] VITALS: BP 122/71
[2020-02-03 16:00] VITALS: BP 115/76
--- NOTE | 2020-02-03 18:10 | NUR ---
PT'S IV WOULD NOT FLUSH. ATTEMPTED TO REPOSITION. IV D/C AT THIS TIME. NEW IV INSERTED IN RIGHT HAND. 2 ATTEMPTS MADE MY OVCT STUDENTS. IV STARTED BY SHERYL.ANIA
--- NOTE | 2020-02-03 19:29 | NUR ---
24 HR chart check completed.
[2020-02-03 20:00] VITALS: BP 115/70
--- NOTE | 2020-02-03 20:00 | NUR ---
Patient resting quietly with no c/o discomfort. Respirations easy and regular. Vital signs stable. No overt distress. HEBER YANG
[2020-02-04] VITALS: BP 114/65
--- NOTE | 2020-02-04 04:00 | NUR ---
Patient resting quietly with no c/o discomfort. Respirations easy and regular. Vital signs stable. No overt distress. HEBER YANG
[2020-02-04 08:00] VITALS: BP 116/70
--- NOTE | 2020-02-04 08:21 | NUR ---
PT RESTING IN BED. NO DISTRESS NOTED. WILL MONITOR
[2020-02-04] MEDS ORDERED: CHANTRIX0.5 MG PO (09:22)
[2020-02-04] MEDS ORDERED: LEVAQUIN750 M1 PO (09:22)
[2020-02-04] MEDS ORDERED: PREDNISONE10 MG PO (09:22)
[2020-02-04 12:00] VITALS: BP 117/80
--- NOTE | 2020-02-04 13:37 | NUR ---
Discharge instructions reviewed with patient/family. Patient receptive and verbalizes understanding. Follow-up care arranged. Written instructions given to patient/family. CARLOS GONSALES
== END 2020-02-04 13:38 | disposition home or self-care (01) | DRG 192 ==
LOC: ED 21:09 → EDHOLD 02-02 00:25 → 5E 02-02 00:25
PROVIDERS: Emergency Medicine; Internal Medicine; ADMIT Student in an Organized Health Care Education/Training Program
DX: J44.1 Chronic obstructive pulmonary disease with (acute) exacerbation (principal); E87.8 Other disorders of electrolyte and fluid balance, not elsewhere classified; R73.9 Hyperglycemia, unspecified; F17.210 Nicotine dependence, cigarettes, uncomplicated; D72.1 Eosinophilia; Z71.6 Tobacco abuse counseling; Z80.42 Family history of malignant neoplasm of prostate; Z80.8 Family history of malignant neoplasm of other organs or systems; Z82.5 Family history of asthma and other chronic lower respiratory diseases

== ENCOUNTER → 2020-06-11 | Outpatient (CLI) | payer OTHER ==
[~2020-06-11] MED LIST changes: +ANASTROZOLE1 M1 PO; +CHANTRIX0.5 MG PO; +DICLOFENAC SOD75 MG PO; +LEVAQUIN750 M1 PO; +MUCUS RELIEF600 MG PO; +VENLAFAXINE H37.5 M5 PO; +VENTOLIN 02.5 MG/3 M INH; +ZITHROMAX250 MG PO
[2020-06-11 13:36] LABS: BASO % 0.5 % (0.0-1.0); EOS # 0.7 10*3/uL (0.0-0.4); EOS % 12.2 % (1.0-4.0); LYMPH # 2.2 10*3/uL (1.3-4.4); LYMPH % 40.3 % (27.0-41.0); MEAN CELL VOLUME 90.5 fl (81.0-99.0); MEAN CORPUSCULAR HGB 29.2 pg (27.0-31.0); MEAN CORPUSCULAR HGB CONC 32.2 g/dl (33.0-37.0); MEAN PLATELET VOLUME 11.1 fl (9.6-12.3); MONO # 0.5 10*3/uL (0.1-1.0); MONO % 9.4 % (3.0-9.0); NEUT # 2.1 10*3/uL (2.3-7.9); NEUT % 37.2 % (47.0-73.0); PLATELET COUNT AUTOMATED 290 10*3/uL (130-400); RED BLOOD COUNT 4.97 10*6/uL (4.10-5.10); WHITE BLOOD COUNT 5.5 10*3/uL (4.8-10.8)
[2020-06-11 13:52] LABS: BUN 8 mg/dl (7-24); CHLORIDE 109 mmol/L (98-107); CREATININE 0.77 mg/dL (0.55-1.02); SGOT/AST 19 IU/L (3-35); SGPT/ALT 22 U/L (12-78); SODIUM 143 mmol/L (136-145); TOTAL PROTEIN 7.4 gm/dL (6.4-8.2)
[2020-06-11 13:53] LABS: ALKALINE PHOSPHATASE 82 U/L (45-117)
== END | disposition home or self-care (01) ==
LOC: LAB 11:58
PROVIDERS: ATTEND Internal Medicine Medical Oncology
DX: C50.911 Malignant neoplasm of unspecified site of right female breast (principal); Z51.81 Encounter for therapeutic drug level monitoring; Z79.811 Long term (current) use of aromatase inhibitors

== ENCOUNTER 2020-06-15 23:15 | Inpatient (IN) | payer OTHER ==
[~2020-06-15] VITALS: Ht 154.9 cm; Wt 46.3 kg
[~2020-06-15 23:15] MED LIST changes: -MUCUS RELIEF600 MG PO; -VENTOLIN 02.5 MG/3 M INH; -ZITHROMAX250 MG PO
--- NOTE | 2020-06-15 23:15 | NUR ---
PATIENT ARRIVED VIA EMS WITH C/O INCREASED SOB SINCE 1600 TODAY. IV STARTED IN LEFT FA W/#20 BY EMS. PATIENT SITTING UPRIGHT, RESPIRATIONS LABORED, MOVED TO STRETCHER, HOB ELEVATED. AUDIBLE WHEEZING HEARD. PATIENT REASSURED, MONITER PLACED, SINUS RHYTHM NOTED. OXYGEN SATS 89 ON ROOM AIR, RETURNED TO 97 W/NC AT 4L/MIN. PATIENT ABLE TO SPEAK IN FULL SENTENCES.
[2020-06-15 23:17] VITALS: BP 117/94
[2020-06-15 23:40] LABS: BASO % 0.6 % (0.0-1.0); EOS # 0.8 10*3/uL (0.0-0.4); EOS % 11.3 % (1.0-4.0); HEMATOCRIT 44.9 % (37.0-47.0); LYMPH # 2.1 10*3/uL (1.3-4.4); LYMPH % 28.7 % (27.0-41.0); MEAN CORPUSCULAR HGB 29.7 pg (27.0-31.0); MEAN CORPUSCULAR HGB CONC 32.3 g/dl (33.0-37.0); MEAN PLATELET VOLUME 10.3 fl (9.6-12.3); MONO # 0.6 10*3/uL (0.1-1.0); MONO % 7.7 % (3.0-9.0); NEUT # 3.7 10*3/uL (2.3-7.9); NEUT % 51.4 % (47.0-73.0); PLATELET COUNT AUTOMATED 281 10*3/uL (130-400); RED BLOOD COUNT 4.88 10*6/uL (4.10-5.10); RED CELL DISTRI WIDTH 14.7 % (0-14.5); WHITE BLOOD COUNT 7.1 10*3/uL (4.8-10.8)
[2020-06-15 23:43] VITALS: BP 116/70
[2020-06-16] VITALS (7 sets, daily range): BP systolic 109–140; BP diastolic 65–78
--- NOTE | 2020-06-16 00:39 | NUR ---
MEDICATION (SOLU-MEDROL 125MG IVP) GIVEN ORDERED. PATIENT FEELING BETTER AFTER BREATHING TREATMENT GIVEN.
[2020-06-16 00:40] LABS: ALKALINE PHOSPHATASE 82 U/L (45-117); BUN 9 mg/dl (7-24); CHLORIDE 109 mmol/L (98-107); CREATININE 0.83 mg/dL (0.55-1.02); POTASSIUM 3.5 mmol/L (3.5-5.1); SGOT/AST 19 IU/L (3-35); SGPT/ALT 22 U/L (12-78); SODIUM 141 mmol/L (136-145); TOTAL PROTEIN 7.6 gm/dL (6.4-8.2)
--- NOTE | 2020-06-16 01:37 | NUR ---
ADMISSION IN PROGRESS, PATIENT C/O HEADACHE.
--- NOTE | 2020-06-16 02:25 | NUR ---
A 49, admitted to 4E, under the services of CARLOS Hsieh DO with a diagnosis of COPD. Chief complaint is SHORTNESS OF BREATH. Patient arrived via WHEELCHAIR from ER. Initial assessment completed. Vital signs taken and recorded. Physician notified of admission to the unit. Orders received. See assessment for past medical history, medications and allergies. Patient and/or family oriented to unit. [facility] visitation policy reviewed. Clothing/patient valuable form completed. JALEN BULLARD
[2020-06-16] MEDS ORDERED: VENTOLIN 02.5 MG/3 M INH (02:38)
--- NOTE | 2020-06-16 03:45 | NUR ---
Notified Dr. Yanes that pts. med noris was updated. Informed him pt wants flu & pnemonia vaccine he stated let's wait on vaccines.
[2020-06-16 05:56] LABS: ALBUMIN 3.6 gm/dl (3.1-4.5); ALKALINE PHOSPHATASE 76 U/L (45-117); BUN 10 mg/dl (7-24); CHLORIDE 109 mmol/L (98-107); CREATININE 1.01 mg/dL (0.55-1.02); POTASSIUM 3.9 mmol/L (3.5-5.1); SGOT/AST 19 IU/L (3-35); SGPT/ALT 20 U/L (12-78); SODIUM 139 mmol/L (136-145); TOTAL PROTEIN 7.4 gm/dL (6.4-8.2)
[2020-06-16 06:04] LABS: BASO % 0.4 % (0.0-1.0); EOS % 0.5 % (1.0-4.0); HEMATOCRIT 43.8 % (37.0-47.0); LYMPH # 0.5 10*3/uL (1.3-4.4); LYMPH % 9.3 % (27.0-41.0); MEAN CELL VOLUME 92.2 fl (81.0-99.0); MEAN CORPUSCULAR HGB 29.7 pg (27.0-31.0); MEAN CORPUSCULAR HGB CONC 32.2 g/dl (33.0-37.0); MEAN PLATELET VOLUME 11.2 fl (9.6-12.3); MONO # 0.1 10*3/uL (0.1-1.0); MONO % 1.1 % (3.0-9.0); NEUT # 4.8 10*3/uL (2.3-7.9); NEUT % 87.8 % (47.0-73.0); PLATELET COUNT AUTOMATED 268 10*3/uL (130-400); RED BLOOD COUNT 4.75 10*6/uL (4.10-5.10); RED CELL DISTRI WIDTH 14.8 % (0-14.5); THYROID STIM HORMONE (HS) 0.448 uIU/ml (0.358-4.75); WHITE BLOOD COUNT 5.5 10*3/uL (4.8-10.8)
--- NOTE | 2020-06-16 15:12 | NUR ---
IV FLUIDS COMPLETED. PT HAS BEEN UP TO THE BATHROOM INDEPENDENTLY, ABLE TO CARE FOR HERSELF. SHE HAS BEEN ON ROOM AIR, TOLERATING WELL, NO C/O VOICED.
[2020-06-17] VITALS: BP 112/77
[2020-06-17 04:00] VITALS: BP 112/77
[2020-06-17 08:00] VITALS: BP 110/64
[2020-06-17] MEDS ORDERED: MUCUS RELIEF600 MG PO (09:43)
[2020-06-17] MEDS ORDERED: CHANTRIX0.5 MG PO (09:43)
[2020-06-17] MEDS ORDERED: PREDNISONE10 MG PO (09:43)
[2020-06-17] MEDS ORDERED: ZITHROMAX250 MG PO (09:43)
--- NOTE | 2020-06-17 11:07 | NUR ---
PT IS DISCHARGED HOME. IV REMOVED TIP INTACT. D/C INSTRUCTIONS HAVE BEEN DISCUSSED AND ALL QUESTIONS AND CONCERNS HAVE BEEN ADDRESSED. FAMILY IS GOING TO DROP SOME CLOTHES OFF SO SHE CAN HAVE SOMETHING TO GO HOME IN. PRESCRIPTIONS HAVE BEEN SENT TO THE PHARMACY. INSTRUCTED HER STEROIDS WOULD BE START TOMORROW SINCE SHE WAS GIVEN STERIODS PRIOR TO DISCHARGE.
== END 2020-06-17 11:07 | disposition home or self-care (01) | DRG 871 ==
LOC: ED 23:15 → EDHOLD 06-16 01:00 → 4E 06-16 01:00
PROVIDERS: Internal Medicine; Student in an Organized Health Care Education/Training Program; ADMIT Emergency Medicine; ATTEND Emergency Medicine
DX: A41.9 Sepsis, unspecified organism (principal); J96.01 Acute respiratory failure with hypoxia; J44.1 Chronic obstructive pulmonary disease with (acute) exacerbation; R65.20 Severe sepsis without septic shock; E87.8 Other disorders of electrolyte and fluid balance, not elsewhere classified; R73.9 Hyperglycemia, unspecified; R91.1 Solitary pulmonary nodule; E55.9 Vitamin D deficiency, unspecified; C50.911 Malignant neoplasm of unspecified site of right female breast; D72.19 Other eosinophilia; F17.210 Nicotine dependence, cigarettes, uncomplicated; Z71.6 Tobacco abuse counseling; Z90.721 Acquired absence of ovaries, unilateral; Z98.891 History of uterine scar from previous surgery; Z82.5 Family history of asthma and other chronic lower respiratory diseases; Z80.42 Family history of malignant neoplasm of prostate; Z80.8 Family history of malignant neoplasm of other organs or systems; Z79.899 Other long term (current) drug therapy; J20.9 Acute bronchitis, unspecified

== ENCOUNTER 2020-06-28 00:56 | Emergency (ER) | payer OTHER ==
[~2020-06-28] VITALS: Ht 154.9 cm; Wt 48.1 kg
[~2020-06-28 00:56] MED LIST changes: +MUCUS RELIEF600 MG PO; +VENTOLIN 02.5 MG/3 M INH; +ZITHROMAX250 MG PO
[2020-06-28 01:01] VITALS: BP 128/83
[2020-06-28] MEDS ORDERED: NAPROSYN500 MG PO (01:38)
== END 2020-06-28 02:01 | disposition home or self-care (01) ==
LOC: ED 00:56
DX: S50.12XA Contusion of left forearm, initial encounter (principal); S60.222A Contusion of left hand, initial encounter; W19.XXXA Unspecified fall, initial encounter; Y93.89 Activity, other specified; Y92.89 Other specified places as the place of occurrence of the external cause; Y99.8 Other external cause status

== ENCOUNTER → 2021-02-19 | Outpatient (CLI) | payer OTHER ==
[2021-02-19 18:11] LABS: HEMATOCRIT 43.4 % (37.0-47.0); MEAN CELL VOLUME 92.7 fl (81.0-99.0); MEAN CORPUSCULAR HGB 30.6 pg (27.0-31.0); MEAN CORPUSCULAR HGB CONC 32.9 g/dl (33.0-37.0); MEAN PLATELET VOLUME 10.7 fl (9.6-12.3); RED BLOOD COUNT 4.68 10*6/uL (4.10-5.10); RED CELL DISTRI WIDTH 13.3 % (0-14.5); WHITE BLOOD COUNT 5.3 10*3/uL (4.8-10.8)
[2021-02-19 18:26] LABS: ALBUMIN 4.3 gm/dl (3.1-4.5); ALKALINE PHOSPHATASE 84 U/L (45-117); BUN 11 mg/dl (7-24); CHLORIDE 104 mmol/L (98-107); CREATININE 0.79 mg/dL (0.55-1.02); POTASSIUM 3.8 mmol/L (3.5-5.1); SGOT/AST 24 IU/L (3-35); SGPT/ALT 29 U/L (12-78); SODIUM 138 mmol/L (136-145); TOTAL PROTEIN 7.9 gm/dL (6.4-8.2)
== END | disposition home or self-care (01) ==
LOC: LAB 17:49
PROVIDERS: ATTEND Internal Medicine Medical Oncology
DX: C50.911 Malignant neoplasm of unspecified site of right female breast (principal); Z85.3 Personal history of malignant neoplasm of breast

== ENCOUNTER 2021-04-02 18:30 | Emergency (ER) | payer OTHER ==
[2021-04-02 18:36] VITALS: BP 111/69
== END 2021-04-02 20:15 | disposition left against medical advice (07) ==
LOC: ED 18:30
DX: L08.89 Other specified local infections of the skin and subcutaneous tissue (principal); Z53.21 Procedure and treatment not carried out due to patient leaving prior to being seen by health care provider

== ENCOUNTER 2021-05-06 23:29 | Inpatient (IN) | payer OTHER ==
[~2021-05-06] VITALS: Ht 154.9 cm; Wt 63.1 kg
[2021-05-06 23:32] VITALS: BP 131/81
[2021-05-07] VITALS (10 sets, daily range): BP systolic 97–119; BP diastolic 52–75
[2021-05-07] MEDS ORDERED: OYSTER SHELL 51 EACH PO (05:30)
[2021-05-07 06:34] LABS: BASO % 0.3 % (0.0-1.0); EOS # 0.8 10*3/uL (0.0-0.4); EOS % 10.5 % (1.0-4.0); LYMPH # 2.7 10*3/uL (1.3-4.4); MEAN CELL VOLUME 92.9 fl (81.0-99.0); MEAN CORPUSCULAR HGB 30.5 pg (27.0-31.0); MEAN CORPUSCULAR HGB CONC 32.8 g/dl (33.0-37.0); MONO # 0.6 10*3/uL (0.1-1.0); MONO % 8.3 % (3.0-9.0); NEUT # 3.5 10*3/uL (2.3-7.9); NEUT % 45.5 % (47.0-73.0); PLATELET COUNT AUTOMATED 225 10*3/uL (130-400); RED CELL DISTRI WIDTH 13.9 % (0-14.5); WHITE BLOOD COUNT 7.6 10*3/uL (4.8-10.8)
[2021-05-07 06:46] LABS: ACT PARTIAL THROMBO TIME 27.4 SECONDS (20.0-32.1)
[2021-05-07 06:55] LABS: ALBUMIN 3.5 gm/dl (3.1-4.5); BUN 12 mg/dl (7-24); CHLORIDE 112 mmol/L (98-107); CHOLESTEROL 146 mg/dL (<200); CREATININE 0.69 mg/dL (0.55-1.02); SGOT/AST 17 IU/L (3-35); SGPT/ALT 30 U/L (12-78); SODIUM 141 mmol/L (136-145); TOTAL PROTEIN 6.9 gm/dL (6.4-8.2)
[2021-05-07 06:57] LABS: ALKALINE PHOSPHATASE 80 U/L (45-117); LDL CHOLESTEROL 58 mg/dL (9-159); TRIGLYCERIDES 137 mg/dl (<150)
[2021-05-07 07:42] LABS: VITAMIN D, 25-HYDROXY 31.7 ng/mL (30-100)
[2021-05-07] MEDS ORDERED: ANASTROZOLE1 M1 PO (16:10)
[2021-05-08] VITALS: BP 103/60
[2021-05-08 05:56] LABS: ALBUMIN 3.1 gm/dl (3.1-4.5); BUN 16 mg/dl (7-24); CHLORIDE 110 mmol/L (98-107); CREATININE 0.75 mg/dL (0.55-1.02); SGOT/AST 15 IU/L (3-35); SGPT/ALT 22 U/L (12-78); SODIUM 138 mmol/L (136-145); TOTAL PROTEIN 6.4 gm/dL (6.4-8.2)
[2021-05-08 05:57] LABS: ALKALINE PHOSPHATASE 79 U/L (45-117)
[2021-05-08 06:01] LABS: BASO % 0.3 % (0.0-1.0); EOS # 0.9 10*3/uL (0.0-0.4); EOS % 14.3 % (1.0-4.0); HEMATOCRIT 38.9 % (37.0-47.0); LYMPH # 2.3 10*3/uL (1.3-4.4); LYMPH % 36.6 % (27.0-41.0); MEAN CELL VOLUME 94.6 fl (81.0-99.0); MEAN CORPUSCULAR HGB 29.9 pg (27.0-31.0); MEAN CORPUSCULAR HGB CONC 31.6 g/dl (33.0-37.0); MEAN PLATELET VOLUME 10.8 fl (9.6-12.3); MONO # 0.6 10*3/uL (0.1-1.0); NEUT # 2.3 10*3/uL (2.3-7.9); NEUT % 37.8 % (47.0-73.0); PLATELET COUNT AUTOMATED 197 10*3/uL (130-400); RED BLOOD COUNT 4.11 10*6/uL (4.10-5.10); RED CELL DISTRI WIDTH 14.3 % (0-14.5); WHITE BLOOD COUNT 6.2 10*3/uL (4.8-10.8)
[2021-05-08 08:00] VITALS: BP 124/88
[2021-05-08 12:00] VITALS: BP 128/78
[2021-05-08 16:00] VITALS: BP 114/67
[2021-05-08 20:00] VITALS: BP 99/84
[2021-05-09] VITALS: BP 100/54
[2021-05-09 07:00] LABS: BASO % 0.4 % (0.0-1.0); EOS # 0.7 10*3/uL (0.0-0.4); EOS % 12.5 % (1.0-4.0); HEMATOCRIT 36.5 % (37.0-47.0); LYMPH # 2.1 10*3/uL (1.3-4.4); LYMPH % 38.3 % (27.0-41.0); MEAN CELL VOLUME 94.1 fl (81.0-99.0); MEAN CORPUSCULAR HGB 30.2 pg (27.0-31.0); MEAN CORPUSCULAR HGB CONC 32.1 g/dl (33.0-37.0); MEAN PLATELET VOLUME 11.1 fl (9.6-12.3); MONO # 0.6 10*3/uL (0.1-1.0); MONO % 10.4 % (3.0-9.0); NEUT # 2.1 10*3/uL (2.3-7.9); PLATELET COUNT AUTOMATED 202 10*3/uL (130-400); RED BLOOD COUNT 3.88 10*6/uL (4.10-5.10); WHITE BLOOD COUNT 5.4 10*3/uL (4.8-10.8)
[2021-05-09 07:31] LABS: BUN 12 mg/dl (7-24); CHLORIDE 107 mmol/L (98-107); CREATININE 0.66 mg/dL (0.55-1.02); POTASSIUM 4.1 mmol/L (3.5-5.1); SODIUM 139 mmol/L (136-145)
[2021-05-09 08:00] VITALS: BP 122/78
[2021-05-09 12:00] VITALS: BP 117/66
[2021-05-09 16:00] VITALS: BP 110/52
[2021-05-09 20:00] VITALS: BP 96/57
[2021-05-10] VITALS: BP 96/73
[2021-05-10 06:25] LABS: BASO % 0.4 % (0.0-1.0); EOS # 0.6 10*3/uL (0.0-0.4); EOS % 11.7 % (1.0-4.0); HEMATOCRIT 40.7 % (37.0-47.0); LYMPH # 2.3 10*3/uL (1.3-4.4); LYMPH % 44.5 % (27.0-41.0); MEAN CELL VOLUME 94.4 fl (81.0-99.0); MEAN CORPUSCULAR HGB 29.9 pg (27.0-31.0); MEAN CORPUSCULAR HGB CONC 31.7 g/dl (33.0-37.0); MONO # 0.5 10*3/uL (0.1-1.0); MONO % 8.9 % (3.0-9.0); NEUT # 1.8 10*3/uL (2.3-7.9); NEUT % 34.3 % (47.0-73.0); PLATELET COUNT AUTOMATED 217 10*3/uL (130-400); RED BLOOD COUNT 4.31 10*6/uL (4.10-5.10); RED CELL DISTRI WIDTH 13.7 % (0-14.5); WHITE BLOOD COUNT 5.2 10*3/uL (4.8-10.8)
[2021-05-10 06:46] LABS: BUN 12 mg/dl (7-24); CHLORIDE 109 mmol/L (98-107); POTASSIUM 4.4 mmol/L (3.5-5.1); SODIUM 139 mmol/L (136-145)
[2021-05-10 08:00] VITALS: BP 94/52
[2021-05-10 12:00] VITALS: BP 91/57
[2021-05-10 16:00] VITALS: BP 96/50
[2021-05-10 20:00] VITALS: BP 91/50
[2021-05-11] VITALS: BP 99/62
[2021-05-11 06:49] LABS: BASO % 0.5 % (0.0-1.0); EOS # 0.6 10*3/uL (0.0-0.4); EOS % 13.6 % (1.0-4.0); HEMATOCRIT 39.7 % (37.0-47.0); LYMPH # 1.8 10*3/uL (1.3-4.4); LYMPH % 41.4 % (27.0-41.0); MEAN CELL VOLUME 93.2 fl (81.0-99.0); MEAN CORPUSCULAR HGB CONC 32.2 g/dl (33.0-37.0); MEAN PLATELET VOLUME 11.1 fl (9.6-12.3); MONO # 0.5 10*3/uL (0.1-1.0); MONO % 10.8 % (3.0-9.0); NEUT # 1.4 10*3/uL (2.3-7.9); NEUT % 33.5 % (47.0-73.0); PLATELET COUNT AUTOMATED 232 10*3/uL (130-400); RED BLOOD COUNT 4.26 10*6/uL (4.10-5.10); RED CELL DISTRI WIDTH 13.7 % (0-14.5); WHITE BLOOD COUNT 4.3 10*3/uL (4.8-10.8)
[2021-05-11 06:58] LABS: BUN 14 mg/dl (7-24); CHLORIDE 108 mmol/L (98-107); CREATININE 0.69 mg/dL (0.55-1.02); POTASSIUM 4.2 mmol/L (3.5-5.1); SODIUM 139 mmol/L (136-145)
[2021-05-11 09:00] VITALS: BP 108/62
[2021-05-11 12:00] VITALS: BP 86/46
[2021-05-11 14:00] VITALS: BP 92/48
[2021-05-11 16:00] VITALS: BP 98/55
[2021-05-11 20:00] VITALS: BP 106/49
[2021-05-12] VITALS (11 sets, daily range): BP systolic 95–137; BP diastolic 63–90
[2021-05-13] VITALS: BP 117/70
[2021-05-13 05:45] LABS: BUN 20 mg/dl (7-24); CHLORIDE 105 mmol/L (98-107); CREATININE 0.71 mg/dL (0.55-1.02); POTASSIUM 4.2 mmol/L (3.5-5.1); SODIUM 136 mmol/L (136-145)
[2021-05-13 06:14] LABS: BASO % 0.1 % (0.0-1.0); EOS # 0.1 10*3/uL (0.0-0.4); EOS % 1.1 % (1.0-4.0); LYMPH # 1.7 10*3/uL (1.3-4.4); LYMPH % 24.3 % (27.0-41.0); MEAN CELL VOLUME 93.5 fl (81.0-99.0); MEAN CORPUSCULAR HGB 29.9 pg (27.0-31.0); MEAN CORPUSCULAR HGB CONC 31.9 g/dl (33.0-37.0); MEAN PLATELET VOLUME 11.4 fl (9.6-12.3); MONO % 14.8 % (3.0-9.0); NEUT # 4.2 10*3/uL (2.3-7.9); NEUT % 59.3 % (47.0-73.0); PLATELET COUNT AUTOMATED 239 10*3/uL (130-400); RED BLOOD COUNT 3.85 10*6/uL (4.10-5.10); RED CELL DISTRI WIDTH 13.6 % (0-14.5)
[2021-05-13 08:00] VITALS: BP 133/80
[2021-05-13 12:00] VITALS: BP 133/74
[2021-05-13 16:00] VITALS: BP 112/64
[2021-05-13 20:00] VITALS: BP 124/68
[2021-05-14] VITALS: BP 116/72
[2021-05-14 06:35] LABS: BASO # 0.1 10*3/uL (0.0-0.1); BASO % 0.7 % (0.0-1.0); EOS # 0.2 10*3/uL (0.0-0.4); EOS % 3.3 % (1.0-4.0); LYMPH # 1.6 10*3/uL (1.3-4.4); LYMPH % 21.8 % (27.0-41.0); MEAN CELL VOLUME 92.9 fl (81.0-99.0); MEAN CORPUSCULAR HGB 30.3 pg (27.0-31.0); MEAN CORPUSCULAR HGB CONC 32.6 g/dl (33.0-37.0); MEAN PLATELET VOLUME 10.7 fl (9.6-12.3); NEUT # 4.4 10*3/uL (2.3-7.9); NEUT % 59.8 % (47.0-73.0); PLATELET COUNT AUTOMATED 274 10*3/uL (130-400); RED BLOOD COUNT 4.09 10*6/uL (4.10-5.10); RED CELL DISTRI WIDTH 13.3 % (0-14.5); WHITE BLOOD COUNT 7.3 10*3/uL (4.8-10.8)
[2021-05-14 06:42] LABS: BUN 13 mg/dl (7-24); CHLORIDE 100 mmol/L (98-107); CREATININE 0.68 mg/dL (0.55-1.02); POTASSIUM 4.1 mmol/L (3.5-5.1); SODIUM 135 mmol/L (136-145)
[2021-05-14 08:00] VITALS: BP 118/75
[2021-05-14 12:00] VITALS: BP 117/75
[2021-05-14] MEDS ORDERED: XARELTO10 MG PO ×3 (13:43→13:46)
[2021-05-14] MEDS ORDERED: HYDROCODONE-AC1 EACH PO (13:43)
[2021-05-14] MEDS ORDERED: DOXYCYCLINE MO100 M1 PO (14:10)
== END 2021-05-14 15:53 | DRG 504 ==
LOC: ED 23:29 → EDHOLD 05-07 03:02 → 4E 05-07 03:02
PROVIDERS: Hospitalist; Internal Medicine; Student in an Organized Health Care Education/Training Program; ADMIT Family Medicine; ATTEND Family Medicine
PROC: 0QSL34Z Reposition Right Tarsal with Internal Fixation Device, Percutaneous Approach (ICD-10-PCS; principal; 2021-05-07)
PROC: 0QSLXZZ Reposition Right Tarsal, External Approach (ICD-10-PCS; 2021-05-07)
PROC: 0QSM04Z Reposition Left Tarsal with Internal Fixation Device, Open Approach (ICD-10-PCS; 2021-05-12)
DX: S92.012A Displaced fracture of body of left calcaneus, initial encounter for closed fracture (principal); R65.10 Systemic inflammatory response syndrome (SIRS) of non-infectious origin without acute organ dysfunction; E87.8 Other disorders of electrolyte and fluid balance, not elsewhere classified; S92.011A Displaced fracture of body of right calcaneus, initial encounter for closed fracture; Z20.822 Contact with and (suspected) exposure to COVID-19; W19.XXXA Unspecified fall, initial encounter; J44.9 Chronic obstructive pulmonary disease, unspecified; D64.9 Anemia, unspecified; F10.129 Alcohol abuse with intoxication, unspecified; R73.9 Hyperglycemia, unspecified; Y93.89 Activity, other specified; Y92.89 Other specified places as the place of occurrence of the external cause; Y99.8 Other external cause status; Z79.51 Long term (current) use of inhaled steroids

== ENCOUNTER → 2021-07-09 | Outpatient (CLI) | payer OTHER ==
[~2021-07-09] MED LIST changes: +DOXYCYCLINE MO100 M1 PO; +HYDROCODONE-AC1 EACH PO; +OYSTER SHELL 51 EACH PO; +XARELTO10 MG PO
[2021-07-09 14:53] LABS: BASO % 0.4 % (0.0-1.0); EOS # 0.4 10*3/uL (0.0-0.4); EOS % 7.4 % (1.0-4.0); HEMATOCRIT 37.3 % (37.0-47.0); LYMPH # 2.5 10*3/uL (1.3-4.4); LYMPH % 47.8 % (27.0-41.0); MEAN CELL VOLUME 92.3 fl (81.0-99.0); MEAN CORPUSCULAR HGB 29.2 pg (27.0-31.0); MEAN CORPUSCULAR HGB CONC 31.6 g/dl (33.0-37.0); MEAN PLATELET VOLUME 10.2 fl (9.6-12.3); MONO # 0.6 10*3/uL (0.1-1.0); MONO % 10.7 % (3.0-9.0); NEUT # 1.7 10*3/uL (2.3-7.9); NEUT % 33.5 % (47.0-73.0); PLATELET COUNT AUTOMATED 273 10*3/uL (130-400); RED BLOOD COUNT 4.04 10*6/uL (4.10-5.10); RED CELL DISTRI WIDTH 13.8 % (0-14.5); WHITE BLOOD COUNT 5.1 10*3/uL (4.8-10.8)
[2021-07-09 15:26] LABS: ALBUMIN 3.7 gm/dl (3.1-4.5); ALKALINE PHOSPHATASE 135 U/L (45-117); BUN 9 mg/dl (7-24); CHLORIDE 109 mmol/L (98-107); CREATININE 0.74 mg/dL (0.55-1.02); POTASSIUM 4.4 mmol/L (3.5-5.1); SGOT/AST 15 IU/L (3-35); SGPT/ALT 18 U/L (12-78); SODIUM 141 mmol/L (136-145); TOTAL PROTEIN 7.3 gm/dL (6.4-8.2)
== END | disposition home or self-care (01) ==
LOC: LAB 14:13
PROVIDERS: Nurse Practitioner Family
DX: C50.911 Malignant neoplasm of unspecified site of right female breast (principal)

== ENCOUNTER → 2021-08-01 | Outpatient (CLI) | payer OTHER | END | disposition home or self-care (01) | LOC: COVID19 15:19 | PROVIDERS: ATTEND Internal Medicine | DX: Z20.822 Contact with and (suspected) exposure to COVID-19 (principal) ==

== ENCOUNTER → 2021-11-11 | Outpatient (CLI) | payer OTHER | END | disposition home or self-care (01) | LOC: US 07:30 | PROVIDERS: ATTEND Nurse Practitioner Family | DX: K76.89 Other specified diseases of liver (principal) ==

== ENCOUNTER → 2021-12-01 | Outpatient (CLI) | payer OTHER ==
[2021-12-01 12:09] LABS: CREATININE 0.86 mg/dL (0.55-1.02)
== END | disposition home or self-care (01) ==
LOC: MRI 11:41 → LAB 11:41 → MRI 13:00
PROVIDERS: ATTEND Nurse Practitioner Family
DX: K76.9 Liver disease, unspecified (principal)

== ENCOUNTER 2021-12-11 13:40 | Observation (INO) | payer OTHER ==
[~2021-12-11] VITALS: Ht 154.9 cm; Wt 54.4 kg
[2021-12-11 15:09] VITALS: BP 120/61
[2021-12-11 20:10] LABS: BASO # 0.1 10*3/uL (0.0-0.1); BASO % 0.7 % (0.0-1.0); EOS # 1.3 10*3/uL (0.0-0.4); EOS % 18.1 % (1.0-4.0); LYMPH # 2.8 10*3/uL (1.3-4.4); LYMPH % 39.6 % (27.0-41.0); MEAN CELL VOLUME 88.4 fl (81.0-99.0); MEAN CORPUSCULAR HGB 28.9 pg (27.0-31.0); MEAN CORPUSCULAR HGB CONC 32.7 g/dl (33.0-37.0); MONO # 0.5 10*3/uL (0.1-1.0); MONO % 6.8 % (3.0-9.0); NEUT # 2.5 10*3/uL (2.3-7.9); NEUT % 34.5 % (47.0-73.0); PLATELET COUNT AUTOMATED 258 10*3/uL (130-400); RED BLOOD COUNT 5.43 10*6/uL (4.10-5.10); RED CELL DISTRI WIDTH 14.1 % (0-14.5); WHITE BLOOD COUNT 7.2 10*3/uL (4.8-10.8)
[2021-12-11 20:24] LABS: ALKALINE PHOSPHATASE 111 U/L (45-117); BUN 14 mg/dl (7-24); CHLORIDE 109 mmol/L (98-107); CREATININE 0.82 mg/dL (0.55-1.02); POTASSIUM 3.9 mmol/L (3.5-5.1); SGOT/AST 18 IU/L (3-35); SGPT/ALT 25 U/L (12-78); SODIUM 140 mmol/L (136-145)
[2021-12-12 04:29] VITALS: BP 96/56
[2021-12-12] MEDS ORDERED: LETROZOLE2.5 M2 PO (04:33)
[2021-12-12] MEDS ORDERED: VENTOLIN 02.5 MG/3 M INH (04:34)
[2021-12-12] MEDS ORDERED: 24 HOUR ALLER15.8 ML INH (04:36)
[2021-12-12] MEDS ORDERED: CETIRIZINE HYDR10 MG PO (04:37)
[2021-12-12] MEDS ORDERED: OXYBUTYNIN CHLOR5 M1 PO (04:37)
[2021-12-12] MEDS ORDERED: CALCIUM CARBON600 M5 PO (04:37)
[2021-12-12] MEDS ORDERED: PROVENTIL HFA6.7 GM INH (04:41)
[2021-12-12] MEDS ORDERED: BREO ELLIPTA 11 EACH INH (04:42)
[2021-12-12 06:05] LABS: BASO % 0.2 % (0.0-1.0); EOS % 0.2 % (1.0-4.0); HEMATOCRIT 47.5 % (37.0-47.0); LYMPH # 1.2 10*3/uL (1.3-4.4); LYMPH % 20.6 % (27.0-41.0); MEAN CELL VOLUME 90.5 fl (81.0-99.0); MEAN CORPUSCULAR HGB 29.5 pg (27.0-31.0); MEAN CORPUSCULAR HGB CONC 32.6 g/dl (33.0-37.0); MEAN PLATELET VOLUME 11.1 fl (9.6-12.3); MONO # 0.1 10*3/uL (0.1-1.0); MONO % 1.8 % (3.0-9.0); NEUT # 4.4 10*3/uL (2.3-7.9); NEUT % 76.8 % (47.0-73.0); PLATELET COUNT AUTOMATED 258 10*3/uL (130-400); RED BLOOD COUNT 5.25 10*6/uL (4.10-5.10); RED CELL DISTRI WIDTH 14.1 % (0-14.5); WHITE BLOOD COUNT 5.7 10*3/uL (4.8-10.8)
[2021-12-12 06:17] LABS: ACT PARTIAL THROMBO TIME 29.5 SECONDS (20.0-32.1)
[2021-12-12 06:19] LABS: CHLORIDE 108 mmol/L (98-107); POTASSIUM 4.2 mmol/L (3.5-5.1); SODIUM 136 mmol/L (136-145)
[2021-12-12 06:20] VITALS: BP 115/68
[2021-12-12 06:26] LABS: ALKALINE PHOSPHATASE 105 U/L (45-117); BUN 15 mg/dl (7-24); CREATININE 0.88 mg/dL (0.55-1.02); SGOT/AST 13 IU/L (3-35); SGPT/ALT 24 U/L (12-78)
[2021-12-12 08:24] VITALS: BP 125/74
[2021-12-12] MEDS ORDERED: PREDNISONE10 MG PO (11:13)
== END 2021-12-12 11:43 | disposition home or self-care (01) ==
LOC: ED 13:40 → EDHOLD 22:49
PROVIDERS: Nurse Practitioner; Student in an Organized Health Care Education/Training Program; ADMIT Internal Medicine; ATTEND Internal Medicine
DX: J44.9 Chronic obstructive pulmonary disease, unspecified (principal); E87.8 Other disorders of electrolyte and fluid balance, not elsewhere classified; R06.82 Tachypnea, not elsewhere classified; D72.10 Eosinophilia, unspecified; Z79.899 Other long term (current) drug therapy; Z79.01 Long term (current) use of anticoagulants

== ENCOUNTER → 2022-03-12 | Day surgery (SDC) | payer OTHER ==
[2022-03-09 14:13] LABS: BASO % 0.6 % (0.0-1.0); EOS % 19.5 % (1.0-4.0); HEMATOCRIT 45.8 % (37.0-47.0); LYMPH % 39.8 % (27.0-41.0); MEAN CELL VOLUME 90.3 fl (81.0-99.0); MEAN CORPUSCULAR HGB CONC 33.2 g/dl (33.0-37.0); MEAN PLATELET VOLUME 10.4 fl (9.6-12.3); MONO # 0.4 10*3/uL (0.1-1.0); MONO % 7.6 % (3.0-9.0); NEUT # 1.6 10*3/uL (2.3-7.9); NEUT % 32.1 % (47.0-73.0); PLATELET COUNT AUTOMATED 259 10*3/uL (130-400); RED BLOOD COUNT 5.07 10*6/uL (4.10-5.10); RED CELL DISTRI WIDTH 13.8 % (0-14.5)
[2022-03-09 14:34] LABS: ALKALINE PHOSPHATASE 98 U/L (45-117); BUN 9 mg/dl (7-24); CHLORIDE 108 mmol/L (98-107); CREATININE 0.89 mg/dL (0.55-1.02); SGOT/AST 28 IU/L (3-35); SGPT/ALT 33 U/L (12-78); SODIUM 140 mmol/L (136-145); TOTAL PROTEIN 7.5 gm/dL (6.4-8.2)
[~2022-03-12] VITALS: Ht 154.9 cm; Wt 56.7 kg
[~2022-03-12] MED LIST changes: +24 HOUR ALLER15.8 ML INH; +CALCIUM CARBON600 M5 PO; +CETIRIZINE HYDR10 MG PO; +LETROZOLE2.5 M2 PO; +OXYBUTYNIN CHLOR5 M1 PO; +PROVENTIL HFA6.7 GM INH
[2022-03-12 06:40] VITALS: BP 116/68
[2022-03-12 09:02] VITALS: BP 136/74
[2022-03-12 09:17] VITALS: BP 117/72
[2022-03-12 09:42] VITALS: BP 118/87
[2022-03-12 10:02] VITALS: BP 114/66
[2022-03-12 15:08] VITALS: BP 136/74
== END | disposition home or self-care (01) ==
LOC: SDC 03-09 11:00
PROVIDERS: ATTEND Orthopaedic Surgery
DX: G56.03 Carpal tunnel syndrome, bilateral upper limbs (principal); G56.23 Lesion of ulnar nerve, bilateral upper limbs; J44.9 Chronic obstructive pulmonary disease, unspecified; Z87.891 Personal history of nicotine dependence; Z85.3 Personal history of malignant neoplasm of breast

== ENCOUNTER → 2022-11-13 | Outpatient (CLI) | payer OTHER | END | disposition home or self-care (01) | LOC: ORTHO 00:08 | PROVIDERS: ATTEND Orthopaedic Surgery | DX: M19.071 Primary osteoarthritis, right ankle and foot (principal); M79.671 Pain in right foot ==

== ENCOUNTER → 2023-11-05 | Outpatient (CLI) | payer OTHER | END | disposition home or self-care (01) | LOC: MRI 10-29 14:00 | PROVIDERS: ATTEND Podiatrist Foot & Ankle Surgery | DX: M19.072 Primary osteoarthritis, left ankle and foot (principal); M77.32 Calcaneal spur, left foot; M65.872 Other synovitis and tenosynovitis, left ankle and foot; M67.874 Other specified disorders of tendon, left ankle and foot ==

== ENCOUNTER → 2023-12-14 | Outpatient (CLI) | payer OTHER ==
[2023-12-14 09:45] LABS: BASO % 0.8 % (0.0-1.0); EOS # 0.8 10*3/uL (0.0-0.4); EOS % 15.5 % (1.0-4.0); HEMATOCRIT 44.1 % (37.0-47.0); LYMPH # 2.5 10*3/uL (1.3-4.4); LYMPH % 47.5 % (27.0-41.0); MEAN CELL VOLUME 93.2 fl (81.0-99.0); MEAN CORPUSCULAR HGB 30.2 pg (27.0-31.0); MEAN CORPUSCULAR HGB CONC 32.4 g/dl (33.0-37.0); MEAN PLATELET VOLUME 9.9 fl (9.6-12.3); MONO # 0.5 10*3/uL (0.1-1.0); MONO % 9.2 % (3.0-9.0); NEUT # 1.4 10*3/uL (2.3-7.9); NEUT % 26.8 % (47.0-73.0); PLATELET COUNT AUTOMATED 277 10*3/uL (130-400); RED BLOOD COUNT 4.73 10*6/uL (4.10-5.10); WHITE BLOOD COUNT 5.2 10*3/uL (4.8-10.8)
[2023-12-14 10:29] LABS: ALKALINE PHOSPHATASE 79 U/L (46-116); BUN 10 mg/dl (9-23); CHLORIDE 105 mmol/L (98-107); CHOLESTEROL 187 mg/dL (<200); LDL CHOLESTEROL 91 mg/dL (9-159); SGPT/ALT 18 U/L (5-49); TOTAL PROTEIN 7.3 gm/dL (6.0-8.0); TRIGLYCERIDES 67 mg/dl (<150)
== END | disposition home or self-care (01) ==
LOC: LAB 09:22
PROVIDERS: ATTEND Nurse Practitioner Family
DX: Z13.220 Encounter for screening for lipoid disorders (principal); E05.90 Thyrotoxicosis, unspecified without thyrotoxic crisis or storm; E55.9 Vitamin D deficiency, unspecified; J44.9 Chronic obstructive pulmonary disease, unspecified

== ENCOUNTER → 2024-04-14 | Outpatient (CLI) | payer OTHER ==
[2024-04-14 12:40] LABS: BASO % 0.6 % (0.0-1.0); EOS # 0.4 10*3/uL (0.0-0.4); EOS % 8.1 % (1.0-4.0); HEMATOCRIT 42.8 % (37.0-47.0); LYMPH # 2.3 10*3/uL (1.3-4.4); LYMPH % 46.9 % (27.0-41.0); MEAN CELL VOLUME 92.8 fl (81.0-99.0); MEAN CORPUSCULAR HGB 29.9 pg (27.0-31.0); MEAN CORPUSCULAR HGB CONC 32.2 g/dl (33.0-37.0); MEAN PLATELET VOLUME 10.4 fl (9.6-12.3); MONO # 0.4 10*3/uL (0.1-1.0); MONO % 8.7 % (3.0-9.0); NEUT # 1.8 10*3/uL (2.3-7.9); NEUT % 35.5 % (47.0-73.0); PLATELET COUNT AUTOMATED 285 10*3/uL (130-400); RED BLOOD COUNT 4.61 10*6/uL (4.10-5.10); RED CELL DISTRI WIDTH 13.3 % (0-14.5); WHITE BLOOD COUNT 4.9 10*3/uL (4.8-10.8)
[2024-04-14 13:22] LABS: VITAMIN D, 25-HYDROXY 110.8 ng/mL (30-100)
[2024-04-14 13:23] LABS: ALKALINE PHOSPHATASE 90 U/L (46-116); BUN 15 mg/dl (9-23); CHLORIDE 105 mmol/L (98-107); CHOLESTEROL 165 mg/dL (<200); LDL CHOLESTEROL 78 mg/dL (9-159); POTASSIUM 4.2 mmol/L (3.4-5.1); SGPT/ALT 21 U/L (5-49); TOTAL PROTEIN 6.9 gm/dL (6.0-8.0); TRIGLYCERIDES 65 mg/dl (<150)
== END | disposition home or self-care (01) ==
LOC: LAB 04:25 → ORTHO 04:25
PROVIDERS: Nurse Practitioner Family; ATTEND Orthopaedic Surgery
DX: M79.89 Other specified soft tissue disorders (principal); J44.9 Chronic obstructive pulmonary disease, unspecified; E78.5 Hyperlipidemia, unspecified; F32.A Depression, unspecified

== ENCOUNTER → 2024-04-25 | Outpatient (CLI) | payer OTHER ==
[~2024-04-25] MED LIST changes: +GADOTERATE MEGLUMINE 5 MMOL/10 ML VIAL IV ONE
== END | disposition home or self-care (01) ==
LOC: MRI 01:59
PROVIDERS: ATTEND Orthopaedic Surgery
DX: M19.021 Primary osteoarthritis, right elbow (principal); M25.421 Effusion, right elbow; M65.20 Calcific tendinitis, unspecified site; D16.01 Benign neoplasm of scapula and long bones of right upper limb

== ENCOUNTER 2024-06-02 13:32 | Emergency (ER) | payer OTHER ==
[~2024-06-02] VITALS: Ht 172.7 cm; Wt 74.8 kg
[~2024-06-02 13:32] MED LIST changes: -GADOTERATE MEGLUMINE 5 MMOL/10 ML VIAL IV ONE
[2024-06-02 15:09] VITALS: BP 124/86
[2024-06-02] MEDS ORDERED: HYDROCODONE-AC1 EAC1 PO ×2 (15:41→15:43)
== END 2024-06-02 15:51 | disposition home or self-care (01) ==
LOC: ED 13:32
DX: S62.304A Unspecified fracture of fourth metacarpal bone, right hand, initial encounter for closed fracture (principal); S62.352A Nondisplaced fracture of shaft of third metacarpal bone, right hand, initial encounter for closed fracture; J44.9 Chronic obstructive pulmonary disease, unspecified; E78.00 Pure hypercholesterolemia, unspecified; F17.200 Nicotine dependence, unspecified, uncomplicated; F10.10 Alcohol abuse, uncomplicated; Z98.890 Other specified postprocedural states; V87.8XXA Person injured in other specified noncollision transport accidents involving motor vehicle (traffic), initial encounter; Y93.55 Activity, bike riding; Y92.410 Unspecified street and highway as the place of occurrence of the external cause; Y99.8 Other external cause status

== ENCOUNTER → 2024-09-29 | Outpatient (CLI) | payer OTHER ==
[~2024-09-29] MED LIST changes: +HYDROCODONE-AC1 EAC1 PO
[2024-09-29 18:12] LABS: CHOLESTEROL 178 mg/dL (<200); LDL CHOLESTEROL 82 mg/dL (9-159); TRIGLYCERIDES 87 mg/dl (<150)
== END | disposition home or self-care (01) ==
LOC: LAB 11:51
PROVIDERS: ATTEND Nurse Practitioner Family
DX: E78.5 Hyperlipidemia, unspecified (principal); M25.50 Pain in unspecified joint

== ENCOUNTER → 2024-11-28 | Outpatient (CLI) | payer OTHER | END | disposition home or self-care (01) | LOC: CT 11-22 13:00 | PROVIDERS: ATTEND Podiatrist | DX: M19.072 Primary osteoarthritis, left ankle and foot (principal); M19.172 Post-traumatic osteoarthritis, left ankle and foot; M79.89 Other specified soft tissue disorders ==

== ENCOUNTER 2025-01-24 08:32 | Emergency (ER) | payer OTHER ==
[~2025-01-24] VITALS: Wt 49.0 kg
[2025-01-24] MEDS ORDERED: Albuterol Sulf/Ipratropium 3 ML VIAL NEB ONE ×3 (08:50→14:35)
[2025-01-24 09:04] LABS: BASO # 0.0 10*3/uL (0.0-0.1); BASO % 0.7 % (0.0-1.0); EOS # 0.8 10*3/uL (0.0-0.4); EOS % 18.1 % (1.0-4.0); MEAN CELL VOLUME 93.5 fl (81.0-99.0); MEAN CORPUSCULAR HGB 29.9 pg (27.0-31.0); MEAN PLATELET VOLUME 10.4 fl (9.6-12.3); MONO # 0.5 10*3/uL (0.1-1.0); MONO % 10.4 % (3.0-9.0); NEUT # 1.5 10*3/uL (2.3-7.9); NEUT % 34.5 % (47.0-73.0); NUCLEATED RED BLOOD CELL 0.0 % (0.0-0.0); NUCLEATED RED BLOOD CELL 0.0 10*3/uL (0.0-0.0); PLATELET COUNT AUTOMATED 266 10*3/uL (130-400); RED CELL DISTRI WIDTH 13.5 % (0-14.5)
[2025-01-24 09:31] LABS: BUN 12 mg/dl (9-23)
[2025-01-24 14:08] VITALS: BP 114/63
[2025-01-24] MEDS ORDERED: PREDNISONE20 M1 PO (15:19)
== END 2025-01-24 15:23 | disposition home or self-care (01) ==
LOC: ED 08:32
PROVIDERS: Internal Medicine
DX: J44.89 Other specified chronic obstructive pulmonary disease (principal); J45.901 Unspecified asthma with (acute) exacerbation; Z79.899 Other long term (current) drug therapy; Z87.891 Personal history of nicotine dependence; Z98.890 Other specified postprocedural states; Z90.721 Acquired absence of ovaries, unilateral

== ENCOUNTER 2025-07-02 21:11 | Emergency (ER) | payer OTHER ==
[~2025-07-02] VITALS: Ht 154.9 cm; Wt 49.0 kg
[2025-07-02 21:16] VITALS: BP 111/65
[2025-07-02] MEDS ORDERED: Lidocaine Hydrochloride 5 ML AMP SC ONE (23:20)
[2025-07-02] MEDS ORDERED: Tdap Vaccine 0.5 ML SYR (Adult Vaccine) IM ONE (23:55)
[2025-07-02] MEDS ORDERED: ACETAMINOPHEN 325 MG TAB PO ONE (23:55)
[2025-07-02] MEDS ORDERED: CEPHALEXIN 500 MG CAP PO ONE (23:55)
[2025-07-02] MEDS ORDERED: CEPHALEXIN500 M1 PO (23:56)
== END 2025-07-03 00:53 | disposition home or self-care (01) ==
LOC: ED 21:11
DX: S61.411A Laceration without foreign body of right hand, initial encounter (principal); J45.909 Unspecified asthma, uncomplicated; Z98.890 Other specified postprocedural states; Z87.891 Personal history of nicotine dependence; W26.0XXA Contact with knife, initial encounter; Y93.89 Activity, other specified; Y92.89 Other specified places as the place of occurrence of the external cause; Y99.8 Other external cause status

== ENCOUNTER → 2025-07-05 | Outpatient (CLI) | payer OTHER ==
[2025-07-05 18:36] LABS: BASO # 0.0 10*3/uL (0.0-0.1); BASO % 0.7 % (0.0-1.0); EOS # 0.3 10*3/uL (0.0-0.4); EOS % 6.5 % (1.0-4.0); MEAN CELL VOLUME 95.1 fl (81.0-99.0); MEAN CORPUSCULAR HGB 30.5 pg (27.0-31.0); MEAN PLATELET VOLUME 11.7 fl (9.6-12.3); MONO # 0.4 10*3/uL (0.1-1.0); MONO % 9.2 % (3.0-9.0); NEUT # 1.5 10*3/uL (2.3-7.9); NEUT % 35.8 % (47.0-73.0); NUCLEATED RED BLOOD CELL 0.0 % (0.0-0.0); NUCLEATED RED BLOOD CELL 0.0 10*3/uL (0.0-0.0); PLATELET COUNT AUTOMATED 250 10*3/uL (130-400); RED CELL DISTRI WIDTH 13.1 % (0-14.5)
[2025-07-05 19:05] LABS: BUN 12 mg/dl (9-23); SGPT/ALT 19 U/L (5-49)
== END | disposition home or self-care (01) ==
LOC: RHCWE 18:04
PROVIDERS: ATTEND Nurse Practitioner Family
DX: S61.411D Laceration without foreign body of right hand, subsequent encounter (principal); Z13.29 Encounter for screening for other suspected endocrine disorder; F32.9 Major depressive disorder, single episode, unspecified; F41.9 Anxiety disorder, unspecified; E55.9 Vitamin D deficiency, unspecified; X58.XXXD Exposure to other specified factors, subsequent encounter